=== PATIENT | male | born 1950 | race Caucasian/White ===

== ENCOUNTER 2017-08-22 15:11 | Inpatient (IN) | payer BC, MEDICARE ==
[2017-08-22] MEDS ORDERED: NS 0.9% 1000 ML* 1,000 ML IV ONE (15:13)
--- NOTE | 2017-08-22 15:39 | RAD ---
INDICATION: Neurologic changes code pearson. COMPARISON: There are no prior studies available for comparison. TECHNIQUE: Contiguous axial sections of the brain were obtained from the skull base to the vertex without contrast. FINDINGS: The ventricles, cisterns and sulci are enlarged consistent with age-related atrophy. No significant focal abnormality or mass effect is seen. There is no evidence for hemorrhage. The tip of the basilar artery appears hyperdense possibly representing thrombus. There is mild mucosal thickening within the maxillary sinuses. The visualized portion of the paranasal sinuses otherwise appear clear. There is also an effusion within the left mastoid air cells. The results of this exam were called to the referring clinician at 1525 hours. IMPRESSION: 1. THE TIP OF THE BASILAR ARTERY IS HYPERDENSE POSSIBLY REPRESENTING THROMBUS. RECOMMEND AN MRI AND MRA OF THE BRAIN FOR FURTHER EVALUATION. 2. EFFUSION WITHIN THE LEFT MASTOID AIR CELLS.
--- NOTE | 2017-08-22 15:40 | RAD ---
HISTORY: Neurological changes, code pisano COMPARISONS: None VIEWS: 4: Frontal dual-energy and lateral views of the chest. FINDINGS: CARDIOMEDIASTINAL SILHOUETTE: The cardiomediastinal silhouette is normal. TONIA: The tonia are normal. PLEURA: The costophrenic angles are sharp. No pleural abnormalities are noted. LUNG PARENCHYMA: The lungs are clear. ABDOMEN: The upper abdomen is clear. There is no subphrenic gas. BONES AND SOFT TISSUES: No bone or soft tissue abnormalities are noted. OTHER: None. IMPRESSION: NO ACTIVE CARDIOPULMONARY DISEASE.
[2017-08-22 15:59] LABS: ABS Basophils 0.1 10^3/ul (0-0.2); ABS Eosinophils 0.1 10^3/ul (0-0.6); ABS Lymphocytes 1.3 10^3/ul (1.0-4.8); ABS Monocytes 0.4 10^3/ul (0-0.8); ABS Neutrophils 4.9 10^3/ul (1.5-7.7); ABS Nucleated RBC 0 10^3/ul; Eosinophil % 1.8 % (0-6); Hematocrit 39 % (42-52); Hemoglobin 13.2 g/dl (14.0-18.0); Lymphocyte % 19.7 % (25-47); Mean Corpuscular HGB Conc 34 g/dl (31-36); Mean Corpuscular Hemoglobin 30 pg (27-31); Mean Corpuscular Volume 89 fL (80-94); Mean Platelet Volume 9 um3 (7.4-10.4); Nucleated Red Blood Cells % 0; Platelet Count 199 10^3/ul (150-450); Red Blood Count 4.38 10^6/ul (4.0-5.4); Red Cell Distribution Width 13 % (10.5-15); White Blood Count 6.8 10^3/ul (3.5-10.8)
[2017-08-22] MEDS ORDERED: Iodixanol* (CONTRAST) 320 MG/ML 100 ML SDV IV ONE (15:59)
[2017-08-22 16:07] LABS: INR 0.89 (0.77-1.02)
[2017-08-22 16:28] LABS: EGFR Non-African American 53.2 (>60)
--- NOTE | 2017-08-22 16:37 | RAD ---
Indication: Seizure versus stroke. Contrast: Administered 80.2 ml of VISAPAQUE 320 mg/ml CTA of the neck and head was performed after IV contrast administration. Coronal and sagittal reconstructed images were obtained. Origins of the great vessels are unremarkable. The common carotid arteries demonstrates no intimal wall thickening or plaque. No definite plaque is noted at the carotid artery origins bilaterally. The carotid arteries in the neck demonstrates no significant stenosis. No evidence of carotid artery dissection is noted. The vertebral arteries demonstrates codominant vertebral arteries. No evidence of vertebral artery dissection is noted. The appear of normal caliber. CTA of the brain demonstrates the intracranial carotid arteries including the intracavernous portion to be intact. Anterior and middle cerebral arteries are intact with no aneurysmal dilatation or branch occlusion. Anterior and middle cerebral arteries demonstrates no atherosclerosis. Sagittal and transverse sinuses are unremarkable. No evidence of aneurysmal dilatation is noted. No branch occlusion is identified. Vertebral arteries, basilar artery and posterior cerebral arteries are grossly unremarkable with no branch occlusion or aneurysmal dilatation. Patent posterior communicating arteries are noted bilaterally. Evaluation of the soft tissues of the neck demonstrates thyroid lobes to be unremarkable. No significant adenopathy is noted. Parotid glands are grossly intact. Submandibular glands are unremarkable. Multilevel degenerative disc disease of the spine is noted. IMPRESSION: CTA of the neck and head demonstrates no evidence of stenosis or branch occlusion. No abnormal calcifications is noted. No aneurysmal dilatation is identified.
[2017-08-22] MEDS ORDERED: Aspirin Low Dose CHEW TAB* 81 MG PO ONE (16:47)
[2017-08-22] MEDS ORDERED: LORazepam INJ* 2 MG/ML 1 ML VIAL IV PUSH PRN (17:25)
[2017-08-22] MEDS ORDERED: levETIRAcetam IV* 1,000 MG in NS 0.9% 100 ML* 100 ML IVPB ONE (18:00)
--- NOTE | 2017-08-22 18:06 | RAD ---
Indication: Seizures. Image sequences: Sagittal and axial T1, axial T2, FLAIR, diffusion and susceptibility weighted images of the brain were obtained. Coronal T2 and T1-weighted images were obtained. Ventricular structures are midline. No midline shift is noted. The extra-axial spaces are unremarkable. There is no evidence of intracranial mass or hemorrhage. No other high or low signal lesions are identified. No restriction of diffusion is noted. No evidence of vasogenic edema is noted. No definite hippocampal abnormality is identified. There is mild atrophy noted. Minimal mucosal thickening of the maxillary sinuses is noted bilaterally. IMPRESSION: No intracranial lesion is identified. Age-appropriate atrophy.
[2017-08-22] MEDS: levETIRAcetam 500 MG IVPREMIX* 500 MG/100 ML BAG IV SCH (20:24)
[2017-08-22 22:33] LABS: Urine Appearance Clear; Urine Blood Negative (Negative); Urine Color Yellow; Urine Ketones 1+ (Negative); Urine Protein Negative (Negative); Urine Specific Gravity 1.035 (1.010-1.030); Urine Urobilinogen Negative (Negative)
--- NOTE | 2017-08-22 22:36 | CONS ---
CC: Dr. Burak Oleary * CONSULTATION NOTE: DATE OF CONSULT: 08/22/17 CURRENT LOCATION: ER bed 12. PRIMARY CARE PROVIDER: Dr. Burak Oleary. REASON FOR CONSULT: Vinh pearson with loss of consciousness. HISTORY OF PRESENT ILLNESS: Mr. Crowe is a very nice 67-year-old gentleman who has no significant past medical history per his report. He was in his usual state of health. 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 He was with a client this afternoon and received a phone call, took the phone call, and shortly thereafter came back to this client at which point he suddenly had loss of consciousness. There were some generalized tonic clonic movements described. No bladder or bowel incontinence. No tongue biting that he is aware of. By the time EMS arrived, they stated he was clearly postictal and confused. He was answering some questions slowly regaining the ability to do so in the ambulance ride, he started to answer more questions and move his extremities. When he got to the ER, he had another episode where he stared off and became unresponsive. I spoke with the ER doctor , Dr. Duff, who states that he was staring off in the space, was not speaking, answering questions, and was not moving any of his extremities. This lasted for a minute or so. A vinh pearson was called. He was sent to CT scan. By the time he was in the CT scanner, he started to improve and when he returned to his ER room, he was basically back to normal, slightly confused, but quickly returning to normal. He has no history of seizures, no history of meningitis or brain infection, no history of significant head trauma or loss of consciousness. No family history of seizures. He has no history of febrile seizures. He has had no recent falls or head trauma. He denies any headache, any vision changes or double vision. Any speech difficulties that he is aware of. Any swallowing difficulties, any hearing changes. He denies any focal numbness, tingling, or weakness in his arms or legs. He denies any tremors. He has not recently been ill. No fevers, chills, nausea, vomiting, diarrhea, or constipation. He has otherwise been in his usual state of health. He currently does not complain of any vertigo, has no evidence of nystagmus. When I arrived in the ER, I did an NIH stroke scale, it was 0. The patient was completely alert and oriented, responsive. He had no recollection of the preceding events. The first thing he remembers is waking up in the ER room. Currently is asymptomatic except for some mild cramping pain in his right calf. He states that he does feel dizzy at times when he sits up, but he denies any palpitations or chest pain or shortness of air. He does note that over the last few days, he has had some difficulties at home with his girlfriend. He has been staying with a friend over the last several days and he notes that he has not been sleeping well. He also states he has not been eating very well and feels that he may be dehydrated. In the past, he states that he had a "nervous breakdown" years ago and at that time, was prescribed trazodone and Seroquel to help him sleep. He has not been on those medications for years. Two days ago, he was put back on the medications after he went to his PCP and requested something for sleep. Because those had worked in the past, he was restarted on those medications and is currently on trazodone 100 mg at bedtime and Seroquel 25 mg at bedtime. He has been taking these for the last 2 nights. He denies any tobacco or alcohol use. He tries to live a healthy lifestyle. He smoked marijuana in the distant past, but none recently. He denies any drug use. PAST MEDICAL HISTORY: As noted above. PAST SURGICAL HISTORY: Includes a hernia surgery in the distant past. MEDICATIONS: 1. Trazodone 100 mg at bedtime. 2. Seroquel 25 mg at bedtime. ALLERGIES: He has no allergies recorded. FAMILY HISTORY: Significant for a paternal grandfather with a stroke in his 60s. A maternal grandmother with diabetes. He denies any family history of seizures or other neurologic issues. 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 He does not smoke or drink. He does not use any illicit substances. No alcohol use. He currently has been staying with a friend, but has a girlfriend that he lives with normally. He states that he has had a conversation today and they were planning to reconcile. REVIEW OF SYSTEMS: A 14-organ systems is noted above, otherwise negative. PHYSICAL EXAM: Vital Signs: He is afebrile. His vital signs are stable, blood pressure is 99/63, afebrile, pulse in the 50s, respiratory rate 20s. In general, he is a well-nourished, well-developed, although very thin gentleman, lying in his hospital bed. He is pleasant, well-dressed, and well-groomed. HEENT: He is normocephalic, atraumatic. Sclerae anicteric. Mucous membranes are moist. Oropharynx is clear. Nares are patent. Neck: Supple. No thyromegaly, no carotid bruits, no meningismus. Chest: Clear to auscultation bilaterally. Cardiovascular: Regular rate and rhythm without murmurs, gallops, or rubs. Abdomen is nontender and nondistended. Extremities: There is no clubbing, cyanosis, or edema. He has no palpable cords in his legs. No redness or erythema. His skin is warm and dry with scattered moles, but no lesions or bruising. Neurologic Exam: He is awake, alert, and oriented x3. His speech is smooth. There is no dysarthria. Recall of recent events is somewhat impaired for the last several hours. Recall of motor events is intact. Vocabulary is intact. His mood is dysthymic. Affect, mood congruent. Speech is fluent. There is no dysarthria. Repetition is intact. Cranial nerves: Pupils are equal, round, and reactive to light. Extraocular muscles are intact in all visual celeste. There is no vertical gaze nystagmus or rotary nystagmus. There is no dysconjugate gaze. There is no vertical or horizontal gaze or paralysis. No HARSH noted. Face is symmetric. Facial sensation is intact. Hearing is intact bilaterally. Tongue is midline. Palate raises symmetrically. He has no nystagmus or dizziness with head moving. No dizziness reproducible with head flexion and extension. Sternocleidomastoid and trapezius are both 5/5. His motor exam is 5/5 throughout. There is no drift. Tone and bulk are both normal. Sensation is intact to light touch and pinprick throughout. There is no focal deficits. He does not extinguish or neglect. Idpptp-rp-bqzp and rapid alternating movements are intact as his [id number]-bh-dxkz without dysdiadochokinesia or dysmetria. There is no tremor resting or with motion. No postural tremor noted. DTRs are 2+ and symmetric in the upper and lower extremities. Equivocal Babinski's. Gait was not tested at this time as he feels somewhat dizzy when he stands up. DIAGNOSTIC STUDIES/LAB DATA: Includes a glucose of 118. His other lab work is pending at this time. CT scan: I did review the films. There appears to be hyperdense area in the top of the basilar artery suggesting a possibility of a thrombus. He has otherwise no acute intracranial brain abnormalities noted. No prior strokes noted. No hemorrhaging noted. He had a chest x-ray done as well, which showed no active cardiopulmonary disease. Electrocardiogram: Sinus rhythm. ASSESSMENT AND PLAN: Mr. Crowe is a 67-year-old gentleman who has no significant past medical history except for some psychiatric issues years ago at which time he was given trazodone and Seroquel for sleep, has not been on those medications for years. He has been in his usual state of health, but has had some underlying stressors. He has had some problems with his girlfriend. He has been living with someone for the last several days. Recently, saw a SALESFORCE SPECIALIST at his PCP's office and requested something for sleep, was put back on trazodone 100 mg at night as well as Seroquel 25 mg at night to help him sleep. He has been taking that for the last 2 nights. He also states he has not been eating well and not been drinking fluids. He denies any illicit substance use. He has no prior history of seizure today. He had what appears to be a generalized tonic-colonic seizure with a postictal period. No tongue biting. No bladder or bowel incontinence. He slowly recovered, but has another event in the ER where he became unresponsive although his eyes were open. He was not moving his extremities or following commands. This slowly resolved over the next few minutes. By the time he had returned from the CT scanner, he was back to his baseline. It appears he may have had another seizure. He currently denies any other symptoms other than some right calf pain. No palpable cords present. He denies any headache, nausea, vomiting, dizziness or vertigo. The only time that he feels dizzy is when he sits up or stands up and that has been ongoing for several days. CT scan showed no acute changes, but there is a suggestion of a hyperdensity at the top of the basilar artery suggesting a thrombus. Certainly top of the basilar artery syndrome can be associated with a number of neurologic findings, most concerning would be his change in mental status. The changes in his alertness, his behavior can be associated with that syndrome. I see no ocular motor or pupillary abnormalities. No unusual vertical or lateral gaze eye movements, no nystagmus. His extraocular muscles in all quadrants are intact. There is no evidence of any ocular torsion or skew deviation. No problems with convergence. I see no evidence of Weir sign. He has no sensory motor abnormalities. No evidence of any other brain stem involvement. Plan: --The plan is to get a CT angiogram of his head and will make further recommendations afterwards. Should he have evidence of a posterior circulation thrombus, I will likely recommend transfer to an outside facility for further evaluation and management. --If there is no evidence of any thrombus, we will proceed with additional workup including MRI of the brain. --EEG. Concern for stroke at this point remains low pending further evaluation by CT angiogram and MRI. He will likely need to be admitted and monitored overnight. I will continue to monitor him closely down in the ER and make further recommendations as necessary. Thank you for the opportunity to participate in the care of this very interesting patient. Addendum: The patient had no evidence of thrombus on CTA. Initial MRI was negative but he continued to have multiple events, some witness by me. The events consisted of staring, loss of speech, post-ictal confusion. Subsequent continuous EEG showed multiple seizure events. He was loaded on Keppra and is being sent to the ICU for further monitoring overnight. Etiology of his ongoing seizures is unclear at this point. No recent illnesses, no risk factors, no fevers, meningismus, light or sound sensitivity. No prior seizures. [id number]/[facility] #: [id number] [facility]
--- NOTE | 2017-08-22 23:25 | HP ---
CC: Burak Oleary MD; Iron Cerda MD * HISTORY AND PHYSICAL: DATE OF ADMISSION: 08/22/17 PRIMARY CARE PROVIDER: Burak Oleary MD ATTENDING PHYSICIAN: Stephen Eddy MD * (dictated by Beena Trujillo NP). CHIEF COMPLAINT: Possible seizure. HISTORY OF PRESENT ILLNESS: Mr. Crowe is a 67-year-old male with no significant past medical history who states that many years ago he had a psychotic break and was hospitalized for 3 weeks and has been doing well, but recently has been under a lot of stress and not handling it well. He describes it as being hypomanic at this time. He states he has not slept in 3 to 4 days. He denies any recent fever, chills, shortness of breath, nausea, vomiting, chest pain, diarrhea. The patient reportedly had an episode of staring and unresponsiveness for approximately 5 minutes earlier this morning. He then again around lunch time had a similar episode where he mostly closed his eyes and stood and was nonresponsive for approximately 5 minutes. His partner thought the behavior was strange. They tried to help him sit and he was very rigid. 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 While in his office with a client, the patient had placed needles in that client and then recalled nothing further than waking up here in the emergency room. According to the client who witnessed the episode, the patient reportedly had a tonic clonic seizure. There was no urinary or bowel incontinence. No signs of tongue biting, although it appears that the patient may have bit his left lower lip as he has some swelling there. According to the patient's partner, he also has difficulty with his prostate and has difficulty urinating when he is under a lot of stress. After the episode at his office, EMS was called and the patient was brought to the ER. While in the emergency room, initially a Vinh Pittman was called. The patient had a CT of his head that was negative. He had an EKG without significant findings. He had labs without significant findings other than a lactic acid of 4.8. He was seen in consultation by Dr. Iron Cerda, who felt this was likely a seizure and Dr. Cerda recommended admission and head and neck CTA in addition to a MRI of his brain. When the patient was over at MRI while in the changing room, he locked himself in the changing room where he again had another staring episode and unresponsive episode. Hospitalists were asked to evaluate the patient for admission. PAST MEDICAL HISTORY: 1. Insomnia. 2. Enlarged prostate. 3. Possible psychosis or dudley in the past. PAST SURGICAL HISTORY: Status post left inguinal hernia repair x2. MEDICATIONS: Home medications include: 1. Trazodone 100 mg oral daily at bedtime. 2. Seroquel 25 mg oral daily at bedtime. 3. The patient also takes numerous supplements including Thai herbs and prostate health supplements. The patient's partner believes he takes melatonin. She will work on getting us a list of the supplements he is taking. ALLERGIES: ENVIRONMENTAL. FAMILY HISTORY: The patient's paternal grandfather had a history of a [place]. He had a maternal grandmother with a history of diabetes mellitus. Father had a history of metastatic colon cancer and his mother had a history of metastatic uterine or ovarian cancer. SOCIAL HISTORY: The patient denies tobacco, alcohol or recreational drug use. 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 His partner, Isabel Slater or his friend Karyn will be his surrogate decision makers in the event he is unable to make decisions for himself. REVIEW OF SYSTEMS: I performed an 11-point review of systems. All the pertinent positives and negatives are mentioned in the history of present illness and remaining review of systems are negative. PHYSICAL EXAMINATION GENERAL APPEARANCE: The patient is alert, pleasant, and appears to be in no acute distress. VITAL SIGNS: Temperature 98.3, heart rate 52, respiratory rate 20, O2 sat 98% on room air, blood pressure 122/71. HEENT: Normocephalic, atraumatic. Pupils are equal and reactive to light. Extraocular movements are intact. The patient has some mild swelling in the left side of his lower lip. RESPIRATORY: There is no accessory muscle use. The lungs are clear to auscultation bilateral. CARDIOVASCULAR: Regular rate and rhythm. S1, S2 present. There are no murmurs , rubs, or gallops heard. ABDOMEN: Soft, nontender, nondistended. Bowel sounds present x4. EXTREMITIES: There is no lower extremity edema. DP and PT pulses are 2+ and symmetric. MUSCULOSKELETAL: There is no clubbing or cyanosis noted. The patient exhibits good strength in all extremities. NEUROLOGIC: The patient is alert and oriented x4. Cranial nerves II through XII are grossly intact. The patient's hand naphthalene operator are equal. He is able to dorsiflex and plantarflex bilateral and it is equal. Tongue is midline. Smile is symmetric. PSYCHOLOGICAL: The patient is anxious but cooperative. SKIN: The patient has mild erythema at the areas of his EKG leads. There are no other rashes or abnormalities seen. DIAGNOSTIC STUDIES/LAB DATA: Sodium 134, potassium 4.4, chloride 103, CO2 of 21, BUN 17, creatinine 1.34, glucose 107, lactic acid 4.8. White blood cell count 6.8, hemoglobin 13.2, hematocrit 39 and platelet count 199,000. Troponin 0.00. EKG shows sinus rhythm and a rate of 66. There are no acute signs of ischemia. There are no previous EKGs for comparison. 1. Brain CT from today. Radiologist impression: The tip of the basilar artery is hyperdense, possibly representing thrombus. I recommend a MRI and MRA of the brain for further evaluation. Effusion within the left mastoid air cells. 2. Chest x-ray from today. Radiologist impression: No active cardiopulmonary disease. 3. Head and neck CTA from today. Radiologist impression: CTA of the neck and head demonstrate no evidence of stenosis or branch occlusion. No abnormal calcification is noted. No aneurysmal dilation is identified. 4. MRI read pending at the time of this dictation. IMPRESSION: Mr. Crowe is a 67-year-old male with past medical history significant for insomnia, enlarged prostate and an undetermined history of psychosis who presented to the emergency room today after having what appeared to be a tonic-clonic seizure. He will be admitted as an observation for seizures. ASSESSMENT/PLAN: 1. New onset of seizures. The patient does not have a seizure history. Two days ago, he was started on trazodone and Seroquel, which can lower the seizure threshold. This is likely the cause of his seizures. The patient will be monitored in the ICU, so that he can be on long-term EEG monitoring overnight in addition to telemetry. The patient has already been seen in consultation by Dr. Cerda with Neurology who will load him with 1000 mg of Keppra now and start 500 mg of IV Keppra twice daily starting this evening. The patient will be on seizure precautions. He does not have any sign of infection. We will hold on lumbar puncture as meningitis is low in the differential. At this point, the patient also has a lactic acidosis, I suspect secondary to his seizure. He will get IV fluids. We will recheck lactic acid in a while. He will have lorazepam available as needed for seizure activity. 2. Possible acute kidney injury. The patient's creatinine is elevated. I have no previous labs for comparison. We will give him IV hydration overnight and see if this improves his creatinine. 3. Possible psychosis. The patient may benefit from a psychiatric evaluation. We should be cautious in starting any medications for his dudley at this time as we do not want to lower his seizure threshold anymore. 4. Insomnia. For now, we are going to hold on giving the patient anything tonight. 5. Enlarged prostate. We will monitor the patient to make sure that he is able to urinate. 6. Fluids, electrolytes and nutrition. The patient will be on a regular diet. 7. Code status. Full code. 8. DVT prophylaxis. The patient is at moderate risk, subcu heparin. DISPOSITION: Observation. TIME SPENT: Time for this admission was approximately 60 minutes, greater than half of that was spent with the patient discussing medications, past medical history, and the events leading up to his arrival today and performing physical examination. The case was reviewed with the attending, Dr. Eddy, who agrees with the plan of care. Reviewed by ERIN ZHAO 08/27/17 1813 [id number]/[facility] #: [id number] SAMUEL
[2017-08-23] MEDS ORDERED: Phenytoin IV(*) 50 MG/ML 5 ML VIAL (250 MG) IVPB ONE ×2 (00:19)
[2017-08-23] MEDS: Heparin VIAL(*) 5000 UNITS/ML VIAL (FIVE THOUSAND) SUBCUT SCH (00:30)
[2017-08-23] MEDS: LORazepam INJ* 2 MG/ML 1 ML VIAL IV PUSH ONE ×2 (00:40→00:45)
[2017-08-23] MEDS: PHENYTOIN IV ONE ×4 (00:53→01:15)
[2017-08-23] MEDS: [UNRECOGNIZED DRUG - OTHER] IV ONE ×4 (00:53→01:15)
[2017-08-23] MEDS ORDERED: NS 0.9% 1000 ML* 1,000 ML IV ONE (04:08)
--- NOTE | 2017-08-23 05:10 | PN ---
Progress Note - Progress Note Date of Service: 08/23/17 Note: Patient became rather somnolent after Ativan and dilantin - only arousable to noxious stimuli. Around 4:30 he became stuporous with urinary urgency, tried to get up out of bed and fell out of bed. Still smonolent and difficulty to awake. Will get head CT and ABG. Will contact Dr. Cerda with results if abnormal
[2017-08-23 05:21] LABS: Hematocrit 39 % (42-52); Hemoglobin 13.1 g/dl (14.0-18.0); Mean Corpuscular HGB Conc 34 g/dl (31-36); Mean Corpuscular Hemoglobin 30 pg (27-31); Mean Corpuscular Volume 90 fL (80-94); Mean Platelet Volume 9 um3 (7.4-10.4); Platelet Count 176 10^3/ul (150-450); Red Blood Count 4.36 10^6/ul (4.0-5.4); Red Cell Distribution Width 14 % (10.5-15); White Blood Count 7.8 10^3/ul (3.5-10.8)
[2017-08-23 05:26] LABS: INR 0.9 (0.77-1.02)
[2017-08-23 05:43] LABS: EGFR Non-African American 68.9 (>60)
--- NOTE | 2017-08-23 08:17 | PN ---
Subjective Date of Service: 08/23/17 Interval History: Patient was on continuous monitoring overnight. Had several prolonged seizures until radiographer angiogram. These were associated with staring and altered mental status. He was not communicative at the time. Would not answer questions. He was confused afterwards but no tonic/clonic activity, no tongue biting or bowel/ bladder incontinence. He was initially loaded on Keppra 1000 mg around 7 pm and then received another 500mg dose IV at 9-10 pm. He continued to seizure despite this. Subsequently loaded on Phosphenytoin 1250mg (20mg/kg) and given 2 mg Ativan. Became very somnolent, hard to arouse, confused, blood pressure dropped and he has received a total of 2 L IVF. He did attempt to get out of bed overnight, fell down but no reported head trauma. CT scan films reviewed. No evidence of acute changes. This morning. He is arousable, somnolent but answers questions appropriately, oriented X 3. ICU nurse is concerned about poor IV access at this point. Girlfriend reports that the patient spent some time in [place] in the last month. His girlfriend reported to us last night that the patient has been taking a number of [place] herbal supplements. They are listed in the chart but include: 1. Zyzyphus 8 2. Albizzia 9 3. Epimedium 8 Each of these preparations contain at 7-12 ingredients MRI 08.22.17: films reviewed. No acute intracranial issues, no stroke, no mass effect or midline shift CTA 08.22.17: films reviewed. No vascular abnormalities identified Objective Active Medications: Levetiracetam (Keppra Iv Premix*) 500 mg in 100 mls @ 400 mls/hr IV Q12H [facility] Last Admin: 08/22/17 20:24 Dose: 400 mls/hr Sodium Chloride (Ns 0.9% 1000 Ml*) 1,000 mls @ 100 mls/hr IV PER RATE [facility] Lorazepam (Ativan Inj*) 2 mg IV PUSH Q10M PRN PRN Reason: seizure activity over 5 minute Vital Signs 08/22/17 08/22/17 08/22/17 17:54 17:57 18:00 Temperature 98.3 F Pulse Rate 56 54 59 Respiratory 18 20 Rate Blood Pressure 131/64 122/71 (mmHg) O2 Sat by Pulse 100 97 Oximetry 08/22/17 08/22/17 08/22/17 18:02 18:15 18:16 Temperature 98.3 F Pulse Rate 52 54 52 Respiratory 27 20 18 Rate Blood Pressure 122/71 135/74 (mmHg) O2 Sat by Pulse 98 100 100 Oximetry 08/22/17 08/22/17 08/22/17 18:17 18:30 18:45 Temperature Pulse Rate 52 51 49 Respiratory 20 19 16 Rate Blood Pressure 134/77 126/73 (mmHg) O2 Sat by Pulse 100 100 100 Oximetry 08/22/17 08/22/17 08/22/17 19:00 19:01 19:15 Temperature Pulse Rate 47 51 54 Respiratory 16 26 14 Rate Blood Pressure 116/75 116/69 (mmHg) O2 Sat by Pulse 90 100 100 Oximetry 08/22/17 08/22/17 08/22/17 19:30 19:45 20:00 Temperature 99.5 F Pulse Rate 53 52 54 Respiratory 14 25 24 Rate Blood Pressure 108/65 100/67 126/70 (mmHg) O2 Sat by Pulse 99 99 100 Oximetry 08/22/17 08/22/17 08/22/17 20:01 20:15 20:30 Temperature Pulse Rate 53 49 52 Respiratory 25 22 16 Rate Blood Pressure 111/62 112/69 (mmHg) O2 Sat by Pulse 100 100 98 Oximetry 08/22/17 08/22/17 08/22/17 20:45 21:00 21:14 Temperature Pulse Rate 50 51 50 Respiratory 19 21 21 Rate Blood Pressure 114/73 112/65 (mmHg) O2 Sat by Pulse 100 100 99 Oximetry 08/22/17 08/22/17 08/22/17 21:15 21:17 21:31 Temperature Pulse Rate 50 51 53 Respiratory 18 15 30 Rate Blood Pressure 113/67 123/69 (mmHg) O2 Sat by Pulse 100 100 100 Oximetry 08/22/17 08/22/17 08/22/17 21:45 22:00 22:01 Temperature Pulse Rate 54 66 59 Respiratory 18 12 23 Rate Blood Pressure 108/67 124/85 (mmHg) O2 Sat by Pulse 99 98 100 Oximetry 08/22/17 08/22/17 08/22/17 22:15 22:30 22:37 Temperature Pulse Rate 50 51 51 Respiratory Rate Blood Pressure 110/65 106/60 (mmHg) O2 Sat by Pulse 99 99 98 Oximetry 08/22/17 08/22/17 08/22/17 22:38 22:45 23:00 Temperature Pulse Rate 52 52 52 Respiratory 14 Rate Blood Pressure 94/55 96/55 (mmHg) O2 Sat by Pulse 98 97 97 Oximetry 08/22/17 08/22/17 08/22/17 23:01 23:15 23:30 Temperature Pulse Rate 51 52 49 Respiratory Rate Blood Pressure 93/55 107/61 (mmHg) O2 Sat by Pulse 97 97 97 Oximetry 08/22/17 08/22/17 08/23/17 23:31 23:45 00:00 Temperature 97.2 F Pulse Rate 47 74 Respiratory 18 Rate Blood Pressure 98/61 (mmHg) O2 Sat by Pulse 98 98 Oximetry 08/23/17 08/23/17 08/23/17 00:01 00:15 00:31 Temperature Pulse Rate 74 51 61 Respiratory 23 19 Rate Blood Pressure 123/81 125/73 122/65 (mmHg) O2 Sat by Pulse 98 99 100 Oximetry 08/23/17 08/23/17 08/23/17 00:40 00:45 00:46 Temperature Pulse Rate 49 Respiratory 16 16 16 Rate Blood Pressure 98/60 (mmHg) O2 Sat by Pulse 95 Oximetry 08/23/17 08/23/17 08/23/17 01:00 01:01 01:16 Temperature Pulse Rate 53 54 57 Respiratory 27 29 17 Rate Blood Pressure 100/63 113/70 (mmHg) O2 Sat by Pulse 95 95 99 Oximetry 08/23/17 08/23/17 08/23/17 01:25 01:30 01:35 Temperature Pulse Rate 51 57 57 Respiratory 16 15 15 Rate Blood Pressure 101/58 89/57 87/54 (mmHg) O2 Sat by Pulse 95 97 95 Oximetry 08/23/17 08/23/17 08/23/17 01:40 01:45 01:46 Temperature Pulse Rate 59 58 58 Respiratory 15 15 15 Rate Blood Pressure 82/51 77/49 77/51 (mmHg) O2 Sat by Pulse 95 95 95 Oximetry 08/23/17 08/23/17 08/23/17 02:00 02:01 02:15 Temperature Pulse Rate 52 48 52 Respiratory 15 13 14 Rate Blood Pressure 83/50 77/48 (mmHg) O2 Sat by Pulse 95 97 97 Oximetry 08/23/17 08/23/17 08/23/17 02:19 02:25 02:30 Temperature Pulse Rate 51 52 54 Respiratory 14 14 14 Rate Blood Pressure 79/50 77/48 80/53 (mmHg) O2 Sat by Pulse 97 97 100 Oximetry 08/23/17 08/23/17 08/23/17 02:40 02:50 03:00 Temperature Pulse Rate 52 52 52 Respiratory 13 12 14 Rate Blood Pressure 80/51 87/54 77/46 (mmHg) O2 Sat by Pulse 100 100 99 Oximetry 08/23/17 08/23/17 08/23/17 03:01 03:10 03:20 Temperature Pulse Rate 51 50 51 Respiratory 15 14 14 Rate Blood Pressure 80/50 81/48 (mmHg) O2 Sat by Pulse 100 100 96 Oximetry 08/23/17 08/23/17 08/23/17 03:30 03:40 03:50 Temperature Pulse Rate 48 50 46 Respiratory 14 15 14 Rate Blood Pressure 83/49 86/45 86/52 (mmHg) O2 Sat by Pulse 97 98 100 Oximetry 08/23/17 08/23/17 08/23/17 04:00 04:01 04:05 Temperature 96.7 F Pulse Rate 48 46 47 Respiratory 12 12 13 Rate Blood Pressure 82/54 77/48 (mmHg) O2 Sat by Pulse 100 100 Oximetry 08/23/17 08/23/17 08/23/17 04:10 04:31 04:40 Temperature Pulse Rate 48 Respiratory 14 16 14 Rate Blood Pressure 90/56 93/62 95/57 (mmHg) O2 Sat by Pulse 100 Oximetry Oxygen Devices in Use Now: None Neurology Exam: General: Awake, Alert, Oriented x3 HEENT: Normocephelic/atraumatic, sclera anicteric, mucous membranes moist Neck: Supple Chest: Clear to auscultation bilaterally Cardiovascular: Bradycardic, no murmurs, gallops o Abdomen: Soft, nontender/nondistended, scaphoid Extremities: No clubbing, cyanosis, or edema. Small, circular patches in the ear (told they are accupuncture pressure points) Neurological Findings: Somnolent, arousable, Oriented x3 Speech: Somonlent with some slurring but fluent, answers questions appropriately Cranial Nerve: PEERL, EOM intact, VFF, no nystagmus, face symmetric bilaterally , hearing intact bilaterally, palate elevates symmetrically, tongue midline Motor: Good resistance X 4 with normal tone. He has some drift in all extremities but is falling asleep during exam Sensation: intact to LT/Noxious stimuli bilaterally upper and lower extremities Deep Tendon Reflex: 2+ symmetric in the upper/lower extremities, Babinski - equivocal Finger to nose, rapid alternating movements intact without tremor, no dysdiadochokinesia Result Diagrams: 08/23/17 05:10 08/23/17 05:10 Microbiology and Other Data: Microbiology 08/22/17 20:00 Nasal Screen MRSA (PCR)(ED) - Final Nasal Mrsa Not Detected Assessment/Plan 67 year old with a history of psychiatric issues dating back years, previous "nervous breakdown" years ago, put on Trazodone and Seroquel at that time with improvement and has been off of those medications for years. He has had some pyschosocial issues recently, been staying at a friends house, has had very limited sleep, poor appetite, has felt "down." Saw [facility] 3 days ago and was restarted on Trazodone 100mg q pm and Seroquel 25mg po q pm for insomnia which helped. No seizure risk factors. His girlfriend reports he is on a number of [place] herbal supplements (list in the chart). Presented yesterday with 3-4 seizures prior to arrival. The first 2 consisted of staring, maintaining tone ( standing) during one episode, non-verbal at the time with a few minutes of post- ictal confusion. He has one GTC like seizure and has continued to have multiple , staring spells with alteration of consciousness, confusion. No bladder or bowel incontinence, no tongue biting. Was initially loaded on Keppra last night with continued seizure activity. Subsequently given Ativan and loaded on Phenytoin 20mg/kg with improvement in seizure activity but became very somnolent , hypotensive, hard to arouse, fell out of bed at one point, no head trauma and repeat Head CT ok. Received 2 L of IVF. Slowly improving this am. Continuous EEG: Shows localized seizure activity with secondarily generalizes associated with the spells. Plan: 1. Continue Keppra and Dilantin today (will get Dilantin level this am and then start maintenance dose) 2. Will plan for continuous EEG monitoring for now 3. Plan for LP: --No evidence for infection: afebrile, no meningismus, no headaches, no light or sound sensitivity, no recent infections. Look for evidence of inflammation/infection. Recent travel to [place]. Check for AFB and tick borne --Recently restarted on several medications which can lower seizure threshold (Seroquel and Trazodone) --Recently has had little to no sleep for several days, has been under stress --Denies alcohol or illicit substance use --Has been taking a number of herbal preparations. I plan to research the supplements today to look for possible culprits which might lower threshold --No evidence of intracranial/structural cause. Had CTA yesterday with contrast. Plan for MRI with contrast later today --Consider autoimmune/paraneoplastic encephalitis: Consider additional workup for occult malignancy --Monitor in ICU --PICC line for poor IV access
--- NOTE | 2017-08-23 08:34 | RAD ---
Indication: Fall, head injury. CT of the brain was performed without IV contrast. Ventricular structures are midline. No midline shift is noted. The extra-axial spaces are unremarkable. There is no evidence of intracranial mass or hemorrhage. No other high or low density lesions. There is opacification of left mastoid air cells. No fracture is noted. Mucosal thickening of the maxillary sinuses is noted. When compared to previous exam of August 22, 2017 no significant change is noted. IMPRESSION: No intracranial mass or hemorrhage.
[2017-08-23] MEDS: levETIRAcetam 500 MG IVPREMIX* 500 MG/100 ML BAG IV SCH ×2 (09:07→20:05)
[2017-08-23] MEDS: NS 0.9% 1000 ML* 1,000 ML IV SCH ×2 (09:13→16:33)
--- NOTE | 2017-08-23 11:16 | PN ---
Subjective Date of Service: 08/23/17 Interval History: Patient seen and examined at bedside. Denies fever, chills, shortness of breath , chest discomfort, N/V/D. Pt had multiple seizures overnight while on video EEG. Pt continues to be lethargic but wakes and answers questions. According to his significant other Isabel he travelled to [place] last month for about a week and developed difficulty sleeping after that. Pt is an avid swimmer per his partner. Tele: Sinus rhythm, rate 40-50's Family History: Unchanged from Admission Social History: Unchanged from Admission Past Medical History: Unchanged from Admission Objective Active Medications: Levetiracetam (Keppra Iv Premix*) 500 mg in 100 mls @ 400 mls/hr IV Q12H [facility] Sodium Chloride (Ns 0.9% 1000 Ml*) 1,000 mls @ 100 mls/hr IV PER RATE [facility] Lorazepam (Ativan Inj*) 2 mg IV PUSH Q10M PRN Reason: seizure activity over 5 minute Vital Signs - 8 hr 08/23/17 08/23/17 09:01 09:16 Pulse Rate 40 Respiratory 21 13 Rate Blood Pressure 136/85 110/60 (mmHg) Oxygen Devices in Use Now: None Appearance: NAD, laying in bed Respiratory: Symmetrical Chest Expansion and Respiratory Effort, Clear to Auscultation Cardiovascular: NL Sounds; No Murmurs; No JVD, RRR Abdominal: NL Sounds; No Tenderness; No Distention Extremities: No Edema Skin: No Rash or Ulcers Neurological: Alert and Oriented x 3, NL Muscle Strength and Tone Lines/Tubes/Other Access: Clean, Dry and Intact Peripheral IV - site benign Nutrition: Taking PO's Result Diagrams: 08/23/17 05:10 08/23/17 05:10 Additional Lab and Data: Continuous EEG: Shows localized seizure activity with secondarily generalizes associated with the spells. Microbiology and Other Data: Microbiology 08/22/17 20:00 Nasal Screen MRSA (PCR)(ED) - Final Nasal Mrsa Not Detected Assess/Plan/Problems-Billing Mr. Carrera is a 67 yo male with PMH significant for "nervous breakdown" and prostate enlargement who presented to the emergency room after a seizure. - Patient Problems (1) Seizure Code(s): R56.9 - UNSPECIFIED CONVULSIONS SNOMED Code(s): 79702715 Comment: - Continuous EEG monitoring for now - Plan for LP (No evidence for infection - afebrile, no meningismus, no headaches, no light or sound sensitivity, no recent infections) - Recently restarted on several medications which can lower seizure threshold ( Seroquel and Trazodone), these have been stopped - Recently has had little to no sleep for several days, has been under stress - Continue Keppra and Dilantin today (will get Dilantin level this am and then start maintenance dose) - Will plan to repeat contrasted MRI in the AM (2) DVT prophylaxis Code(s): [id number] - SNOMED Code(s): 571431109 Comment: - SQ heparin on hold for LP - SCDs (3) Full code status Code(s): Z78.9 - OTHER SPECIFIED HEALTH STATUS SNOMED Code(s): 732937440 Status and Disposition: Inpatient. Discharge to home when medically stable.
--- NOTE | 2017-08-23 11:50 | EEG ---
[facility] VIDEO/EEG MONITORING - Monitoring Monitoring Start Date: 08/22/17 Current Monitoring Session: 08/22/17 at 18:25 to 08/23/17 at 05:25 EEG Clinical Indication: Keven Crowe is a 67 year-old, right-handed man who began having episodes of loss of awareness today. Pt states he hasn't slept in several days and has been under stress. 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 While in MRI, pt had another episode, details unclear as to what occurred. While hooking pt up for EEG, he was talking about consent form with tech when he began staring at the tech with R eye deviation, L eye twitching, tongue sticking in and out while yawning. Pt became unable to speak but could intially follow command to squeeze techs hand and lift R arm up. Pt then could not lower his R arm on command, lift L arm or wiggle toes in his feet. This lasted several minutes. He also had an episode of tonic-clonic movements reportedly in the ED. He is on several [place] herbal supplements. Long-term video EEG is requested due to concern for new onset, acute repetitive seizures, to characterize/localize events and monitor treatment course Introduction: INTRODUCTION: The EEG was monitored from 21 scalp electrodes. Nineteen electrodes consisted of the standard parasagittal, temporal and midline leads of the International 10 -20 system. In addition, special electrodes T1 and T2 were placed. EEG data were recorded on an [employer] system with simultaneous MPEG-4 digital video recording of patient behavior. EEG recording was in a monopolar montage with all electrodes referenced to FCz. Significant behavioral events were signaled by an event button, or putative electrical seizure events were detected by a computer program. All EEG data were reviewed in their entirety on a monitor with reconstruction of montages and adjustments of sensitivity and filtering. Simultaneous patient behavior was viewed on an adjacent monitor and correlated with the EEG. - Medications Active Medications: Levetiracetam (Keppra Iv Premix*) 500 mg in 100 mls @ 400 mls/hr IV Q12H [facility] Last Admin: 08/23/17 09:07 Dose: 400 mls/hr Sodium Chloride (Ns 0.9% 1000 Ml*) 1,000 mls @ 100 mls/hr IV PER RATE [facility] Last Admin: 08/23/17 09:13 Dose: 100 mls/hr Lorazepam (Ativan Inj*) 2 mg IV PUSH Q10M PRN PRN Reason: seizure activity over 5 minute Patient loaded with levetiracetam 1000mg at 18:22 on 08/22, then received fosphenytoin 20mg/kg IV at 01:15 on 08/23 and lorazepam 2mg IV at 00:45 on 08/23. - Description Background: The waking background showed appropriate organization with clearly defined anterior-posterior voltage and frequency gradients. There was a defined posterior dominant rhythm of 9 Hertz, which was symmetrical and showed normal reactivity. Anteriorly, there was the expected pattern of lower voltage and more irregular theta and beta rhythms. The sleep background was appropriately organized with well-developed spindles and vertex waves indicative of stage 2 sleep. These sleep transients showed appropriate morphology and were bilaterally synchronous and symmetrical. Development of diffuse delta range frequencies with dropout of stage 2 architecture accompanied transition to slow wave sleep, and a lower voltage mixed frequency pattern associated with eye movements was consistent with REM sleep. Intericatal Epileptiform Activity: No epileptiform abnormalities were recorded. No areas of focal slowing were evident. Ictal Activity: The patient experienced 3 electroclinical seizures during this monitoring period , which shared similar electrical and clinical characteristics. These occurred at 19:51 and 21:24 on 08/22 and at 00:01 on 08/23. Each seizure lasted between 17 and 20 minutes. Electrographically, the seizures began with the gradual build up of moderate voltage, rhythmic 2 to 3 Hz sharp wave activity at CZ, which spread after several seconds to the right frontal region (FP2 and F4). This activity initially appeared to have positive polarity. With spread to the right frontal region, the activity increased in frequency to 4 Hz and became intermixed with theta and alpha-range activity superimposed. After 60 seconds or so, the activity spread to the right paracentral chain and the left frontal region (FP1 , F3) and the activity was primarily characterized by high voltage 2-3 Hz activity with superimposed faster frequency rhythms. The ictal activity continued to evolve in the bilateral frontal and central regions while the posterior dominant rhythm was maintained for the first 3 minutes of the seizure. Eventually, the PDR disappeared and the ictal activity consisted of bifrontal and centrally predominant 1-2 Hz sharp and slow wave activity with intermixed polyspike activity. This continued for the majority of the seizure. The PDR was noted to begin returning 12 to 13 minutes after the ictal onset, and the ictal activity tapered off in the reverse of the way in which it propagated, with the activity in the right frontal and midline regions being the last to end. The background quickly returned to normal. Clinically, the patient was noted to stop responding to those around him, seemed to have irregular or deep breathing and was unable to follow commands. However, once the PDR returned, despite ongoing ictal activity elsewhere, the patient was noted to be able to state his name when asked but still remained relatively motionless and at other times did not verbally respond when questions were asked of him. With the onset of the second seizure, the patient' s girlfriend was looking through his calendar at his request and he appeared to be able to respond relatively normally for the first 2 minutes of the seizure. He then took a deep breath and she noticed something had changed, then alerted nursing. He was noted to yawn at one point. After this seizure, he was noted to be confused, talking about equipment delivering moisture. - Impression Impression: This is an abnormal long-term monitoring session. The patient experienced 3 electroclinical seizures, all of which were prolonged , lasting between 17 and 20 minutes. The seizures began in the midline and right frontal region, then generalized but remained frontocentrally predominant , as described above. Clinically, the patient mostly remained unresponsive and motionless for the majority of the seizures, when the ictal activity was at its most diffuse, but the electrographic onset was noted to precede clinical symptoms by 2 minutes in one case. In addition, the patient regained responsiveness prior to the termination of ictal activity as well. 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 No seizures were noted after the patient received lorazepam and fosphenytoin.
[2017-08-23] MEDS ORDERED: Phenytoin IV(*) 50 MG/ML 2 ML VIAL (100 MG) IVPB SCH (16:00)
[2017-08-23] MEDS: Fosphenytoin(*) 100 MG/2 ML VIAL IV SLOW PU SCH (16:17)
[2017-08-24] MEDS: Fosphenytoin(*) 100 MG/2 ML VIAL IV SLOW PU SCH ×2 (00:11→07:43)
[2017-08-24] MEDS: Heparin VIAL(*) 5000 UNITS/ML VIAL (FIVE THOUSAND) SUBCUT SCH (00:16)
[2017-08-24] MEDS: NS 0.9% 1000 ML* 1,000 ML IV SCH (02:27)
--- NOTE | 2017-08-24 07:37 | PN ---
Subjective Date of Service: 08/24/17 Interval History: No problems overnight. Nurse reports no seizure activity. The patient feels "much better." Reports sleeping well. Now that the patient is more alert and oriented, he relates an admission from 2001 when he was involuntarily admitted for depression. At that time, he did have an episode described as a possible seizure, although the patient feels it was more stress induced. The semiology is unclear at this point but the patient was admitted briefly with some psychological issues. He was treated with some Trazodone but was discharged home on Celexa and Seroquel which he eventually stopped. He denies any further seizure like activity until this admission EEG reviewed: 3 distinct seizures captured lasting 15-20 minutes each. Dilatning level 19.2 --> 15.4 this am LP results reviewed. Protein elevated at 69 otherwise looks ok. Awaiting multiple studies, some are send-outs Family History: Unchanged from Admission Social History: Unchanged from Admission Past Medical History: Unchanged from Admission Objective Active Medications: Fosphenytoin Sodium (Cerebyx(*)) 100 mg IV SLOW PU Q8H [facility] Last Admin: 08/24/17 00:11 Dose: 100 mg Levetiracetam (Keppra Iv Premix*) 500 mg in 100 mls @ 400 mls/hr IV Q12H [facility] Last Admin: 08/23/17 20:05 Dose: 400 mls/hr Sodium Chloride (Ns 0.9% 1000 Ml*) 1,000 mls @ 100 mls/hr IV PER RATE [facility] Last Admin: 08/24/17 02:27 Dose: 100 mls/hr Lorazepam (Ativan Inj*) 2 mg IV PUSH Q10M PRN PRN Reason: seizure activity over 5 minute Vital Signs 08/23/17 08/23/17 08/23/17 09:01 09:16 09:31 Temperature Pulse Rate 40 42 Respiratory 21 13 12 Rate Blood Pressure 136/85 110/60 109/64 (mmHg) O2 Sat by Pulse 99 Oximetry 08/23/17 08/23/17 08/23/17 09:46 10:00 10:01 Temperature Pulse Rate 44 43 52 Respiratory 19 15 16 Rate Blood Pressure 109/63 106/64 (mmHg) O2 Sat by Pulse 98 100 Oximetry 08/23/17 08/23/17 08/23/17 10:36 10:45 11:00 Temperature Pulse Rate 42 42 Respiratory 13 20 14 Rate Blood Pressure 115/66 132/75 (mmHg) O2 Sat by Pulse Oximetry 08/23/17 08/23/17 08/23/17 11:01 11:16 11:30 Temperature Pulse Rate 42 45 49 Respiratory 13 12 15 Rate Blood Pressure 106/60 99/58 105/70 (mmHg) O2 Sat by Pulse 100 100 98 Oximetry 08/23/17 08/23/17 08/23/17 11:46 12:00 12:29 Temperature 97.5 F Pulse Rate 44 47 41 Respiratory 14 20 13 Rate Blood Pressure 90/59 121/75 115/66 (mmHg) O2 Sat by Pulse 100 100 Oximetry 08/23/17 08/23/17 08/23/17 12:30 12:45 13:00 Temperature Pulse Rate 42 43 48 Respiratory 12 12 18 Rate Blood Pressure 125/65 120/67 (mmHg) O2 Sat by Pulse 100 100 100 Oximetry 08/23/17 08/23/17 08/23/17 13:01 13:15 13:30 Temperature Pulse Rate 48 46 45 Respiratory 17 13 13 Rate Blood Pressure 98/64 99/65 98/63 (mmHg) O2 Sat by Pulse 99 100 100 Oximetry 08/23/17 08/23/17 08/23/17 13:45 14:00 14:12 Temperature Pulse Rate 49 51 45 Respiratory 14 14 14 Rate Blood Pressure 101/59 117/64 (mmHg) O2 Sat by Pulse 100 100 100 Oximetry 08/23/17 08/23/17 08/23/17 14:15 14:31 14:46 Temperature Pulse Rate 46 46 Respiratory 18 13 14 Rate Blood Pressure 132/74 110/50 96/55 (mmHg) O2 Sat by Pulse 100 100 Oximetry 08/23/17 08/23/17 08/23/17 15:00 15:02 15:05 Temperature Pulse Rate 45 44 44 Respiratory 14 16 14 Rate Blood Pressure 93/57 (mmHg) O2 Sat by Pulse 100 100 97 Oximetry 08/23/17 08/23/17 08/23/17 15:12 15:17 15:21 Temperature Pulse Rate 49 44 45 Respiratory 16 17 20 Rate Blood Pressure 119/73 106/57 103/64 (mmHg) O2 Sat by Pulse 100 100 100 Oximetry 08/23/17 08/23/17 08/23/17 15:30 15:40 15:51 Temperature Pulse Rate 45 45 43 Respiratory 20 18 13 Rate Blood Pressure 118/59 111/63 110/69 (mmHg) O2 Sat by Pulse 100 100 Oximetry 08/23/17 08/23/17 08/23/17 16:00 16:10 16:20 Temperature 97.5 F Pulse Rate 43 44 43 Respiratory 16 18 13 Rate Blood Pressure 101/62 91/63 116/63 (mmHg) O2 Sat by Pulse 98 99 100 Oximetry 08/23/17 08/23/17 08/23/17 16:31 16:41 17:00 Temperature Pulse Rate 45 43 46 Respiratory 16 13 14 Rate Blood Pressure 121/68 93/61 112/65 (mmHg) O2 Sat by Pulse 98 98 Oximetry 08/23/17 08/23/17 08/23/17 17:01 17:15 17:31 Temperature Pulse Rate 43 50 56 Respiratory 14 15 17 Rate Blood Pressure 96/64 115/86 (mmHg) O2 Sat by Pulse 100 100 99 Oximetry 08/23/17 08/23/17 08/23/17 17:45 18:00 18:15 Temperature Pulse Rate 42 46 47 Respiratory 15 14 13 Rate Blood Pressure 104/61 102/59 93/60 (mmHg) O2 Sat by Pulse 100 98 98 Oximetry 08/23/17 08/23/17 08/23/17 18:31 18:46 19:00 Temperature Pulse Rate 45 44 49 Respiratory 13 13 21 Rate Blood Pressure 115/60 107/66 (mmHg) O2 Sat by Pulse 100 100 Oximetry 08/23/17 08/23/17 08/23/17 19:02 19:15 19:30 Temperature Pulse Rate 53 52 52 Respiratory 16 18 15 Rate Blood Pressure 103/60 105/67 98/61 (mmHg) O2 Sat by Pulse 100 89 99 Oximetry 08/23/17 08/23/17 08/23/17 19:43 19:45 20:00 Temperature 97.6 F Pulse Rate 52 53 Respiratory 16 16 Rate Blood Pressure 91/57 87/55 (mmHg) O2 Sat by Pulse 98 96 Oximetry 08/23/17 08/23/17 08/23/17 20:01 20:15 20:30 Temperature Pulse Rate 52 50 51 Respiratory 17 17 15 Rate Blood Pressure 102/60 93/57 (mmHg) O2 Sat by Pulse 96 97 97 Oximetry 08/23/17 08/23/17 08/23/17 20:45 21:00 21:01 Temperature Pulse Rate 53 57 52 Respiratory 15 17 17 Rate Blood Pressure 104/57 89/57 (mmHg) O2 Sat by Pulse 98 100 Oximetry 08/23/17 08/23/17 08/23/17 21:15 21:30 21:45 Temperature Pulse Rate 51 51 52 Respiratory 16 14 16 Rate Blood Pressure 89/52 81/51 87/53 (mmHg) O2 Sat by Pulse 97 97 97 Oximetry 08/23/17 08/23/17 08/23/17 22:00 22:01 22:15 Temperature Pulse Rate 51 52 50 Respiratory 16 15 15 Rate Blood Pressure 88/54 92/57 (mmHg) O2 Sat by Pulse 96 96 96 Oximetry 08/23/17 08/23/17 08/23/17 22:30 22:45 23:00 Temperature Pulse Rate 49 49 Respiratory 20 14 16 Rate Blood Pressure 90/53 90/53 84/53 (mmHg) O2 Sat by Pulse 98 97 Oximetry 08/23/17 08/23/17 08/23/17 23:01 23:15 23:30 Temperature Pulse Rate 56 48 50 Respiratory 18 16 17 Rate Blood Pressure 90/53 89/56 (mmHg) O2 Sat by Pulse 99 97 95 Oximetry 08/23/17 08/24/17 08/24/17 23:33 00:00 00:01 Temperature 98.8 F Pulse Rate 53 54 Respiratory 17 19 19 Rate Blood Pressure 86/56 (mmHg) O2 Sat by Pulse 95 96 Oximetry 08/24/17 08/24/17 08/24/17 00:16 00:30 01:00 Temperature Pulse Rate 50 51 50 Respiratory 12 17 15 Rate Blood Pressure 88/57 95/57 (mmHg) O2 Sat by Pulse 98 96 96 Oximetry 08/24/17 08/24/17 08/24/17 01:01 01:30 02:00 Temperature Pulse Rate 50 48 48 Respiratory 14 14 15 Rate Blood Pressure 90/51 81/46 (mmHg) O2 Sat by Pulse 96 100 96 Oximetry 08/24/17 08/24/17 08/24/17 02:01 02:30 03:00 Temperature Pulse Rate 47 51 Respiratory 15 16 18 Rate Blood Pressure 89/54 98/63 (mmHg) O2 Sat by Pulse 96 100 Oximetry 08/24/17 08/24/1718 03:01 03:02 03:30 Temperature Pulse Rate 50 50 Respiratory 16 16 15 Rate Blood Pressure 96/65 (mmHg) O2 Sat by Pulse 98 98 Oximetry 08/24/17 08/24/17 08/24/17 04:00 04:01 04:30 Temperature 98.8 F Pulse Rate 48 49 Respiratory 16 15 14 Rate Blood Pressure 95/57 101/65 (mmHg) O2 Sat by Pulse 97 98 Oximetry 08/24/17 08/24/17 08/24/17 04:31 05:00 05:01 Temperature Pulse Rate 51 49 Respiratory 16 14 14 Rate Blood Pressure 80/56 85/51 (mmHg) O2 Sat by Pulse 96 94 Oximetry 08/24/17 08/24/17 08/24/17 05:02 05:30 05:46 Temperature Pulse Rate 49 48 Respiratory 14 16 16 Rate Blood Pressure 86/49 (mmHg) O2 Sat by Pulse 97 98 Oximetry 08/24/17 08/24/17 06:00 06:01 Temperature Pulse Rate 48 49 Respiratory 15 15 Rate Blood Pressure 105/57 (mmHg) O2 Sat by Pulse 100 98 Oximetry Oxygen Devices in Use Now: None Neurology Exam: General: Awake, Alert, Oriented x3 HEENT: Normocephelic/atraumatic, sclera anicteric, mucous membranes moist Neck: Supple Chest: Clear to auscultation bilaterally Cardiovascular: Regular rate and rhythm without murmurs, rubs, gallops Abdomen: Soft, nontender/nondistended Extremities: No clubbing, cyanosis, or edema Neurological Findings: Awake, Alert, Oriented x3 Speech: fluent without dysarthria, repetition intact Cranial Nerve: Cataracts bilaterally. Mild anisicoria right 4-->2, left 3-->2 both reactive, EOM intact, VFF, no nystagmus, face symmetric bilaterally hearing intact to finger rub bilaterally, palate elevates symmetrically, tongue midline Motor: moving all extremities, antigravity, no drift x4 tone/bulk normal Sensation: Grossly intact to LT/PP Deep Tendon Reflex: 1+ symmetric in the upper/lower extremities Finger to nose, rapid alternating movements intact without tremor Result Diagrams: 08/23/17 05:10 08/23/17 05:10 Additional Lab and Data: Continuous EEG: Shows localized seizure activity with secondarily generalizes associated with the spells. Microbiology and Other Data: Microbiology 08/22/17 20:00 Nasal Screen MRSA (PCR)(ED) - Final Nasal Mrsa Not Detected Assessment/Plan Mr. Crowe is a 67 yo male with PMH significant for "nervous breakdown", presented to the ER with new onset non-convulsive status. Etiology remains unclear. Awaiting additional CSF studies. Protein mildly elevated. No evidence for infectious process. The patient notes a prior admission in 2001 for psychiatric illness and there was reported seizure like activity at that time, although the semiology is unclear. He was treated with Celexa and Seroquel at that time. I spoke with Psychiatry who notes that he does have a history of some depression/hypomania symptoms. We discussed a mood stabilizer/ AED as a better alternative. --D/C continuous monitoring. Now seizure free > 24 hours. To floor today --MRI with contrast pending. MRI without negative --I spoke at length with the patient about his history of seizures and the possible etiologies. I explained that we are waiting on further studies but for now, I think it is prudent to remain on seizure medication as an outpatient as it is unclear to me that this was a provoked seizure secondary to meds. --Plan to d/c Dilantin --Wean off of Keppra over the next day. Given his history of depression/ hypomania, this is not a good first line medication chcf. --Load Depakote 750mg po now and then 250mg po bid with level in the am. --Will need outpatient follow up for further monitoring --Discussed the risks and benefits of Depakote. --Will need close outpatient follow up. Many of the LP labs including paraneoplastic will take several weeks. --Concern that the [place] herbal preparations that he was on may be involved. Counseled to stay off of herbal preparations --He should avoid Seroquel and Trazodone as outpaint as both can lower seizure threshold. --Discussed seizure precautions including no driving, no heights, no heavy machinery, no swimming alone, no baths/only showers and to avoid open flames. --I am off service this evening but will sign out to Dr. Toledo later today. He can likely go home tomorrow on Depakote. Please arrange follow up with me in 4-6 weeks.
[2017-08-24] MEDS ORDERED: levETIRAcetam TAB* 500 MG PO SCH (09:00)
--- NOTE | 2017-08-24 09:47 | EEG ---
HALFWAY VIDEO/EEG MONITORING - Monitoring Monitoring Start Date: 08/22/17 Current Monitoring Session: 08/23/17 at 07:33 to 08/24/17 at 09:52 EEG Clinical Indication: Keven Crowe is a 67 year-old, right-handed man who began having episodes of loss of awareness today. Pt states he hasn't slept in several days and has been under stress. 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 While in MRI, pt had another episode, details unclear as to what occurred. While hooking pt up for EEG, he was talking about consent form with tech when he began staring at the tech with R eye deviation, L eye twitching, tongue sticking in and out while yawning. Pt became unable to speak but could intially follow command to squeeze techs hand and lift R arm up. Pt then could not lower his R arm on command, lift L arm or wiggle toes in his feet. This lasted several minutes. He also had an episode of tonic-clonic movements reportedly in the ED. He is on several [place] herbal supplements. Long-term video EEG is requested due to concern for new onset, acute repetitive seizures, to characterize/localize events and monitor treatment course Introduction: INTRODUCTION: The EEG was monitored from 21 scalp electrodes. Nineteen electrodes consisted of the standard parasagittal, temporal and midline leads of the International 10 -20 system. In addition, special electrodes T1 and T2 were placed. EEG data were recorded on an [employer] system with simultaneous MPEG-4 digital video recording of patient behavior. EEG recording was in a monopolar montage with all electrodes referenced to FCz. Significant behavioral events were signaled by an event button, or putative electrical seizure events were detected by a computer program. All EEG data were reviewed in their entirety on a monitor with reconstruction of montages and adjustments of sensitivity and filtering. Simultaneous patient behavior was viewed on an adjacent monitor and correlated with the EEG. - Medications Active Medications: Sodium Chloride (Ns 0.9% 1000 Ml*) 1,000 mls @ 100 mls/hr IV PER RATE [facility] Last Admin: 08/24/17 02:27 Dose: 100 mls/hr Levetiracetam (Keppra Tab*) 500 mg PO BID [facility] Last Admin: 08/24/17 09:26 Dose: 500 mg Lorazepam (Ativan Inj*) 2 mg IV PUSH Q10M PRN PRN Reason: seizure activity over 5 minute Phenytoin Sodium (Dilantin Cap(*)) 100 mg PO TID [facility] - Description Background: The patient slept for the majority of this monitoring session. The sleep background was appropriately organized with well-developed spindles and vertex waves indicative of stage 2 sleep. These sleep transients showed appropriate morphology and were bilaterally synchronous and symmetrical. Development of diffuse delta range frequencies with dropout of stage 2 architecture accompanied transition to slow wave sleep, and a lower voltage mixed frequency pattern associated with eye movements was consistent with REM sleep When observed, the waking background showed appropriate organization with clearly defined anterior-posterior voltage and frequency gradients. There was a defined posterior dominant rhythm of 9 Hertz, which was symmetrical and showed normal reactivity. Anteriorly, there was the expected pattern of lower voltage and more irregular theta and beta rhythms. Intericatal Epileptiform Activity: None Ictal Activity: None - Impression Impression: This is a normal long-term monitoring session. The patient did not experience any further seizures, but was noted to be asleep for the majority of the recording session. There were no epileptiform abnormalities or areas of focal slowing.
--- NOTE | 2017-08-24 10:17 | PN ---
Subjective Date of Service: 08/24/17 Interval History: Patient seen and examined at bedside. Denies fever, chills, shortness of breath , chest discomfort, N/V/D. Pt states that he is feeling better. He doesn't recall yesterday. He reports that he follows with a urologist and either medication for his prostate was too expensive or he didn't like the reported side effects and didn't take them. He states that he found herbs to help with his prostate. He states that his other herbs help get rid of all the "bad inside of him". His partner Isabel would like him to be seen by Psychiatry for his "Hypomania" that he was experiencing prior to his admission. Tele: Sinus rhythm, sinus joe. Rate 40-60's Family History: Unchanged from Admission Social History: Unchanged from Admission Past Medical History: Unchanged from Admission Objective Active Medications: Sodium Chloride (Ns 0.9% 1000 Ml*) 1,000 mls @ 100 mls/hr IV PER RATE [facility] Levetiracetam (Keppra Tab*) 500 mg PO BID [facility] Lorazepam (Ativan Inj*) 2 mg IV PUSH Q10M PRN Reason: seizure activity over 5 minute Phenytoin Sodium (Dilantin Cap(*)) 100 mg PO TID [facility] Vital Signs - 8 hr 08/24/17 08/24/17 08/24/17 02:30 03:00 03:01 Temperature Pulse Rate 51 50 Respiratory 16 18 16 Rate Blood Pressure 89/54 98/63 (mmHg) O2 Sat by Pulse 100 98 Oximetry 08/24/17 08/24/17 08/24/17 03:02 03:30 04:00 Temperature 98.8 F Pulse Rate 50 Respiratory 16 15 16 Rate Blood Pressure 96/65 95/57 (mmHg) O2 Sat by Pulse 98 Oximetry 08/24/17 08/24/17 08/24/17 04:01 04:30 04:31 Temperature Pulse Rate 48 49 Respiratory 15 14 16 Rate Blood Pressure 101/65 (mmHg) O2 Sat by Pulse 97 98 Oximetry 08/24/17 08/24/17 08/24/17 05:00 05:01 05:02 Temperature Pulse Rate 51 49 49 Respiratory 14 14 14 Rate Blood Pressure 80/56 85/51 (mmHg) O2 Sat by Pulse 96 94 97 Oximetry 08/24/17 08/24/17 08/24/17 05:30 05:46 06:00 Temperature Pulse Rate 48 48 Respiratory 16 16 15 Rate Blood Pressure 86/49 105/57 (mmHg) O2 Sat by Pulse 98 100 Oximetry 08/24/17 08/24/17 08/24/17 06:01 06:30 07:00 Temperature Pulse Rate 49 49 50 Respiratory 15 14 14 Rate Blood Pressure 101/62 109/57 (mmHg) O2 Sat by Pulse 98 99 98 Oximetry 08/24/17 08/24/17 08/24/17 07:01 07:30 07:39 Temperature 99.4 F Pulse Rate 49 69 Respiratory 15 19 Rate Blood Pressure 123/71 (mmHg) O2 Sat by Pulse 100 83 Oximetry 08/24/17 08/24/17 08/24/17 08:00 08:01 08:31 Temperature Pulse Rate 55 56 53 Respiratory 18 19 18 Rate Blood Pressure 113/61 114/61 (mmHg) O2 Sat by Pulse 100 99 100 Oximetry 08/24/17 08/24/17 08/24/17 09:00 09:01 09:31 Temperature Pulse Rate 57 57 64 Respiratory 18 18 16 Rate Blood Pressure 117/68 104/63 (mmHg) O2 Sat by Pulse 99 99 100 Oximetry 08/24/17 08/24/17 10:00 10:01 Temperature Pulse Rate 67 78 Respiratory 18 19 Rate Blood Pressure 113/59 (mmHg) O2 Sat by Pulse 100 Oximetry Oxygen Devices in Use Now: None Appearance: NAD, sitting up in bed Ears/Nose/Mouth/Throat: Mucous Membranes Moist Respiratory: Symmetrical Chest Expansion and Respiratory Effort, Clear to Auscultation Cardiovascular: NL Sounds; No Murmurs; No JVD, RRR Abdominal: NL Sounds; No Tenderness; No Distention Extremities: No Edema Skin: No Rash or Ulcers Neurological: Alert and Oriented x 3, NL Muscle Strength and Tone Lines/Tubes/Other Access: Clean, Dry and Intact Peripheral IV - site benign, x2 Nutrition: Taking PO's Result Diagrams: 08/23/17 05:10 08/23/17 05:10 Additional Lab and Data: 08/22-08/23 - Continuous EEG: Shows localized seizure activity with secondarily generalizes associated with the spells. - Continuous EEG: Read pending. Microbiology and Other Data: Microbiology 08/22/17 20:00 Nasal Screen MRSA (PCR)(ED) - Final Nasal Mrsa Not Detected Assess/Plan/Problems-Billing Mr. Crowe is a 67 yo male with PMH significant for "nervous breakdown", presented to the ER with new onset non-convulsive status. Etiology remains unclear. - Patient Problems (1) Seizure Code(s): R56.9 - UNSPECIFIED CONVULSIONS SNOMED Code(s): 37863866 Comment: - Continuous EEG monitoring for now, will dc later today if no seizures overnight - S/P LP, Awaiting additional CSF studies. Protein mildly elevated. No evidence for infectious process - Recently restarted on several medications which can lower seizure threshold ( Seroquel and Trazodone), these have been stopped - Pt counseled to stop taking [place] herbal preparations - Recently has had little to no sleep for several days, has been under stress - Continue Keppra and Dilantin, changed to PO - Will plan to repeat contrasted MRI later today, once off EEG to look for any other possible intracranial cause for seizure. MRI without negative - Will need close outpatient follow up. (2) BPH (benign prostatic hyperplasia) Code(s): N40.0 - BENIGN PROSTATIC HYPERPLASIA WITHOUT LOWER URINRY TRACT SYMP SNOMED Code(s): 070867781 Comment: - Takes herbs at home, these have been stopped - No issues at this time, will continue to monitor (3) DVT prophylaxis Code(s): JSR6736 - SNOMED Code(s): 739953782 Comment: - SCDs (4) Full code status Code(s): Z78.9 - OTHER SPECIFIED HEALTH STATUS SNOMED Code(s): 873409574 Status and Disposition: Inpatient. Discharge to home when medically stable.
[2017-08-24] MEDS ORDERED: Phenytoin CAP(*) 100 MG CAP.ER PO SCH (14:00)
[2017-08-24 14:58] LABS: CSF VDRL Negative (Negative)
[2017-08-24] MEDS ORDERED: Divalproex ER TAB(*) 250 MG PO ONE (15:51)
--- NOTE | 2017-08-24 16:00 | ED ---
Parmjit Carver Angela, scribed for Lonny Duff MD on 08/22/17 at 1519 . Neurological HPI - HPI Summary HPI Summary: This pt is a 67 y/o male presenting to [facility] via EMS for a possible seizure today. 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 Upon arrival of EMS to the scene pt was in a potictal state. In the ambulance pt is talking a little bit going back to his normal state, saying he was surprised that he just had a seizure. Suddenly pt went to an altered mental status, he became mute and had a fixed gaze. 15:10 - Upon arrival to the ED pt is mute, not following commands, with a fixed gaze. He is taken to CT immediately. 15:20- Upon return to the ED from CT, pt is talking and acting his normal self. He reports he is feeling lightheaded. He had LOC because he does not remember coming in to the ED via EMS. Pt currently denies headache. The last thing he remembers is that he was in his office treating his friend with acupuncture and massage. He had a phone call from another friend and stepped out. Pt spoke with his friend on the phone and then went back to his office to continue treating his friend. This is up to where he remembers. Pt states he has not been staying at home because he has been stressed due to a situation with his girlfriend. Pt has been staying at his friend's house these past few days. Due to "unusual environment", pt has not been sleeping well. He notes it has been stressful. He reports that for several days in a row he has not been sleeping well. Pt reports 2 nights ago he started to take Trazodone and Seroquel for the first time again after 14 years. There were prescribed by PCP to help him sleep. He states that last night he had the best sleep he has had this past week. Denies hx of seizures, stroke PMHx: none. NKDA. - History of Current Complaint Stated Complaint: SEIZURE Hx Obtained From: Patient Onset/Duration: Sudden Onset, Still Present Timing: Sudden Onset Current Severity: Severe Number of Seizures: 1 Character: Lightheaded, Impaired Speech, Responsiveness Syncope Context: Witnessed - by friend, Loss of Consciousness: Yes Aggravating: Nothing Alleviating: Spontanious Resolution Associated Signs and Symptoms: Positive: Loss of Consciousness, Seizure - ?, AMS , Lightheadness. Negative: Headache - Allergy/Home Medications Allergies/Adverse Reactions: Allergies Allergy/AdvReac Type Severity Reaction Status Date / Time No Known Allergies Allergy Verified 08/22/17 15:59 Home Medications: Home Medications QUEtiapine TAB* [SEROquel TAB*] 25 mg PO BEDTIME 08/22/17 [History Confirmed ] traZODone TAB* [Desyrel TAB*] 100 mg PO BEDTIME 08/22/17 [History Confirmed ] Aconite 1 cap PO DAILY 08/23/17 [History Confirmed 08/23/17] Albizza Bark 1 cap PO DAILY 08/23/17 [History Confirmed 08/23/17] Arisaema 1 cap PO DAILY 08/23/17 [History Confirmed 08/23/17] Astragalus Root 1 gm PO DAILY 08/23/17 [History Confirmed 08/23/17] Bergamot [[place] Bergamot] 250 mg PO DAILY 08/23/17 [History Confirmed 08/23/17] Biota Seed 1 cap PO DAILY 08/23/17 [History Confirmed 08/23/17] Cistanches 1 cap PO DAILY 08/23/17 [History Confirmed 08/23/17] Curcuma 1 cap PO DAILY 08/23/17 [History Confirmed 08/23/17] Cuscuta 1 cap PO DAILY 08/23/17 [History Confirmed 08/23/17] [place] Seed 1 cap PO DAILY 08/23/17 [History Confirmed 08/23/17] Dioscorea 1 cap PO DAILY 08/23/17 [History Confirmed 08/23/17] Epimedium 1 cap PO DAILY 08/23/17 [History Confirmed 08/23/17] Ginseng 100 mg PO DAILY 08/23/17 [History Confirmed 08/23/17] Paulina Seed 1 cap PO DAILY 08/23/17 [History Confirmed 08/23/17] Lycium 1 cap PO DAILY 08/23/17 [History Confirmed 08/23/17] Melatonin (NF) 1 tab PO BEDTIME 08/23/17 [History Confirmed 08/23/17] Ophiopogon 1 cap PO DAILY 08/23/17 [History Confirmed 08/23/17] Ophipogon 1 cap PO DAILY 08/23/17 [History Confirmed 08/23/17] Peony 1 cap PO DAILY 08/23/17 [History Confirmed 08/23/17] Poly Gonum Stem 1 cap PO DAILY 08/23/17 [History Confirmed 08/23/17] Polygala 1 cap PO DAILY 08/23/17 [History Confirmed 08/23/17] Poria 1 cap PO DAILY 08/23/17 [History Confirmed 08/23/17] Psoralea 1 cap PO DAILY 08/23/17 [History Confirmed 08/23/17] Rehmannia 1 cap PO DAILY 08/23/17 [History Confirmed 08/23/17] Salvia 1 cap PO DAILY 08/23/17 [History Confirmed 08/23/17] Schizandra 1 cap PO DAILY 08/23/17 [History Confirmed 08/23/17] Tangkuei 1 cap PO DAILY 08/23/17 [History Confirmed 08/23/17] Tribulus 1 cap PO DAILY 08/23/17 [History Confirmed 08/23/17] Uncaria 1 cap PO DAILY 08/23/17 [History Confirmed 08/23/17] Zizyphus 1 cap PO DAILY 08/23/17 [History Confirmed 08/23/17] PMH/Surg Hx/FS Hx/Imm Hx Endocrine/Hematology History: Denies: Hx Diabetes Cardiovascular History: Denies: Hx Hypertension Neurological History: Denies: Hx Seizures - Family History Family History: Father and mother: colon CA. Pt is unaware of FHx of seizures. - Social History Alcohol Use: None Substance Use Type: Reports: None Smoking Status (MU): Never Smoked Tobacco Review of Systems Constitutional: Other - dehydrated Negative: Fever, Chills Eyes: Negative ENT: Negative Cardiovascular: Negative Respiratory: Negative Gastrointestinal: Negative Neurological: Other - lightheadedness, seizure, altered mental status Negative: Headache All Other Systems Reviewed And Are Negative: Yes Physical Exam - Summary Physical Exam Summary: VITAL SIGNS: Reviewed. GENERAL: Patient is a well-developed and thin male who is lying comfortable in the stretcher. Patient is not in any acute respiratory distress. HEAD AND FACE: No signs of trauma. No ecchymosis, hematomas or skull depressions. No sinus tenderness. EYES: PERRLA, EOMI x 2, No injected conjunctiva, no nystagmus. EARS: Hearing grossly intact. Ear canals and tympanic membranes are within normal limits. MOUTH: Oropharynx within normal limits. NECK: Supple, trachea is midline, no adenopathy, no JVD, no carotid bruit, no c- spine tenderness, neck with full ROM. CHEST: Symmetric, no tenderness at palpation LUNGS: Clear to auscultation bilaterally. No wheezing or crackles. CVS: Regular rate and rhythm, S1 and S2 present, no murmurs or gallops appreciated. ABDOMEN: Soft, non-tender. No signs of distention. No rebound no guarding, and no masses palpated. Bowel sounds are normal. EXTREMITIES: FROM in all major joints, no edema, no cyanosis or clubbing. NEURO: Alert and oriented x 3. No acute neurological deficits. Speech is normal and follows commands. SKIN: Dry and warm Triage Information Reviewed: Yes Vital Signs On Initial Exam: Initial Vitals Temp Pulse Resp BP Pulse Ox 98.0 F 56 13 97/65 97 08/22/17 15:13 08/22/17 15:13 08/22/17 15:13 08/22/17 15:13 08/22/17 15:13 Vital Signs Reviewed: Yes - [place] Coma Scale Best Eye Response: 4 - Spontaneous Best Motor Response: 1 - None Best Verbal Response: 1 - None Coma Scale Total: 6 Glascow Coma Scale Comments: GCS = 6 upon arrival to the ED via EMS. GCS = 15 after pt came back from radiology CT. Diagnostics - Vital Signs Vital Signs Temp Pulse Resp BP Pulse Ox 08/23/17 08:46 42 11 113/63 08/23/17 08:30 43 12 100/66 08/23/17 08:16 41 12 103/59 08/23/17 08:01 42 15 105/58 08/23/17 08:00 98 F 42 11 08/23/17 07:46 43 8 103/60 08/23/17 07:31 44 13 100/69 08/23/17 07:26 43 10 110/64 08/23/17 07:00 43 13 08/23/17 06:31 42 11 96/62 08/23/17 06:15 45 12 101/62 08/23/17 06:01 44 11 89/56 100 02/15/18 06:00 45 12 100 02/15/18 05:21 44 16 98/72 0218 05:00 44 14 02 04:40 14 95/57 02 04:31 16 93/62 0218 04:10 48 14 90/56 100 18 04:05 47 13 77/48 100 0218 04:01 46 12 82/54 02 04:00 96.7 F 48 14 100 08/23/17 03:50 46 14 86/52 100 18 03:40 50 15 86/45 98 08/23/17 03:30 48 14 83/49 97 08/23/17 03:20 51 14 81/48 96 08/23/17 03:10 50 14 80/50 100 08/23/17 03:01 51 15 100 08/23/17 03:00 52 14 77/46 99 08/23/17 02:50 52 12 87/54 100 08/23/17 02:40 52 13 80/51 100 08/23/17 02:30 54 14 80/53 100 08/23/17 02:25 52 14 77/48 97 08/23/17 02:19 51 14 79/50 97 08/23/17 02:15 52 14 77/48 97 08/23/17 02:01 48 13 97 08/23/17 02:00 52 16 83/50 95 08/23/17 01:46 58 15 77/51 95 18 01:45 58 15 77/49 95 08/23/17 01:40 59 15 82/51 95 18 01:35 57 15 87/54 95 18 01:30 57 15 89/57 97 08/23/17 01:25 51 16 101/58 95 08/23/17 01:16 57 17 113/70 99 08/23/17 01:01 54 29 95 08/23/17 01:00 53 27 100/63 95 18 00:46 49 16 98/60 95 18 00:45 16 0218 00:40 16 02 00:31 61 19 122/65 100 0218 00:15 51 23 125/73 99 02/15/18 00:01 74 123/81 98 02/15/18 00:00 74 18 98 02/14/18 23:45 47 98/61 98 02/14/18 23:31 97.2 F 02/14/18 23:30 49 107/61 97 02/14/18 23:15 52 93/55 97 02/14/18 23:01 51 97 02/14/18 23:00 52 14 96/55 97 02/14/18 22:45 52 94/55 97 02/14/18 22:38 52 98 02/14/18 22:37 51 98 02/14/18 22:30 51 106/60 99 02/14/18 22:15 50 110/65 99 0214/18 22:01 59 23 124/85 100 0214/18 22:00 66 12 98 02/14/18 21:45 54 18 108/67 99 02/14/18 21:31 53 30 123/69 100 02/14/18 21:17 51 15 100 02/14/18 21:15 50 18 113/67 100 02/14/18 21:14 50 21 112/65 99 02/14/18 21:00 51 21 100 02/14/18 20:45 50 19 114/73 100 02/14/18 20:30 52 16 112/69 98 02/14/18 20:15 49 22 111/62 100 02/14/18 20:01 53 25 100 02/14/18 20:00 99.5 F 54 24 126/70 100 02/14/18 19:45 52 25 100/67 99 02/14/18 19:30 53 14 108/65 99 02/14/18 19:15 54 14 116/69 100 02/14/18 19:01 51 26 116/75 100 02/14/18 19:00 47 16 90 02/14/18 18:45 49 16 126/73 100 02/14/18 18:30 51 19 134/77 100 02/14/18 18:17 52 20 100 02/14/18 18:16 52 18 100 02/14/18 18:15 54 20 135/74 100 02/14/18 18:02 98.3 F 52 27 122/71 98 02/14/18 18:00 98.3 F 59 20 122/71 97 02/14/18 17:57 54 18 131/64 08/22/17 17:54 56 100 08/22/17 16:30 57 19 105/61 99 08/22/17 16:00 61 18 121/67 99 08/22/17 15:43 61 19 100 08/22/17 15:30 99/63 08/22/17 15:13 98.0 F 56 13 97/65 97 - Laboratory Lab Results: Lab Results 08/22/17 08/22/17 08/22/17 Range/Units 15:27 15:36 15:36 WBC 6.8 (3.5-10.8) 10^3/ul RBC 4.38 (4.0-5.4) 10^6/ul Hgb 13.2 L (14.0-18.0) g/dl Hct 39 L (42-52) % MCV 89 (80-94) fL MCH 30 (27-31) pg MCHC 34 (31-36) g/dl RDW 13 (10.5-15) % Plt Count 199 (150-450) 10^3/ul MPV 9 (7.4-10.4) um3 Neut % (Auto) 71.6 (38-83) % Lymph % (Auto) 19.7 L (25-47) % [place] % (Auto) 6.1 (1-9) % Eos % (Auto) 1.8 (0-6) % Baso % (Auto) 0.8 (0-2) % Absolute Neuts (auto) 4.9 (1.5-7.7) 10^3/ul Absolute Lymphs (auto) 1.3 (1.0-4.8) 10^3/ul Absolute Monos (auto) 0.4 (0-0.8) 10^3/ul Absolute Eos (auto) 0.1 (0-0.6) 10^3/ul Absolute Basos (auto) 0.1 (0-0.2) 10^3/ul Absolute Nucleated RBC 0 10^3/ul Nucleated RBC % 0 INR (Anticoag Therapy) 0.89 (0.77-1.02) APTT 24.2 L (26.0-36.3) seconds ABG pH (7.35-7.45) ABG pCO2 (35-45) mmHg ABG pO2 (80-100) mmHg ABG HCO3 (19-31) mmol/L ABG O2 Saturation (95-98) % ABG Base Excess (-2.0-2.0) Sodium (133-145) mmol/L Potassium (3.5-5.0) mmol/L Chloride (101-111) mmol/L Carbon Dioxide (22-32) mmol/L Anion Gap (2-11) mmol/L BUN (6-24) mg/dL Creatinine (0.67-1.17) mg/dL Est GFR ( Amer) (>60) Est GFR (Non-Af Amer) (>60) BUN/Creatinine Ratio (8-20) Glucose (70-100) mg/dL POC Glucose (mg/dL) 118 H (70-100) mg/dL Lactic Acid (0.5-2.0) mmol/L Calcium (8.6-10.3) mg/dL Phosphorus (2.5-5.0) mg/dL Magnesium (1.9-2.7) mg/dL Total Bilirubin (0.2-1.0) mg/dL AST (13-39) U/L ALT (7-52) U/L Alkaline Phosphatase (34-104) U/L Troponin I (<0.04) ng/mL Total Protein (6.4-8.9) g/dL Albumin (3.2-5.2) g/dL Globulin (2-4) g/dL Albumin/Globulin Ratio (1-3) Triglycerides mg/dL Cholesterol mg/dL LDL Cholesterol mg/dL HDL Cholesterol mg/dL Urine Color Urine Appearance Urine pH (5-9) Ur Specific [place] (1.010-1.030) Urine Protein (Negative) Urine Ketones (Negative) Urine Blood (Negative) Urine Nitrate (Negative) Urine Bilirubin (Negative) Urine Urobilinogen (Negative) Ur Leukocyte Esterase (Negative) Urine Glucose (Negative) Blood Type Antibody Screen 08/22/17 08/22/17 08/22/17 Range/Units 15:36 15:36 15:36 WBC (3.5-10.8) 10^3/ul RBC (4.0-5.4) 10^6/ul Hgb (14.0-18.0) g/dl Hct (42-52) % MCV (80-94) fL MCH (27-31) pg MCHC (31-36) g/dl RDW (10.5-15) % Plt Count (150-450) 10^3/ul MPV (7.4-10.4) um3 Neut % (Auto) (38-83) % Lymph % (Auto) (25-47) % [place] % (Auto) (1-9) % Eos % (Auto) (0-6) % Baso % (Auto) (0-2) % Absolute Neuts (auto) (1.5-7.7) 10^3/ul Absolute Lymphs (auto) (1.0-4.8) 10^3/ul Absolute Monos (auto) (0-0.8) 10^3/ul Absolute Eos (auto) (0-0.6) 10^3/ul Absolute Basos (auto) (0-0.2) 10^3/ul Absolute Nucleated RBC 10^3/ul Nucleated RBC % INR (Anticoag Therapy) (0.77-1.02) APTT (26.0-36.3) seconds ABG pH (7.35-7.45) ABG pCO2 (35-45) mmHg ABG pO2 (80-100) mmHg ABG HCO3 (19-31) mmol/L ABG O2 Saturation (95-98) % ABG Base Excess (-2.0-2.0) Sodium 134 (133-145) mmol/L Potassium 4.4 (3.5-5.0) mmol/L Chloride 103 (101-111) mmol/L Carbon Dioxide 21 L (22-32) mmol/L Anion Gap 10 (2-11) mmol/L BUN 17 (6-24) mg/dL Creatinine 1.34 H (0.67-1.17) mg/dL Est GFR ( Amer) 68.4 (>60) Est GFR (Non-Af Amer) 53.2 (>60) BUN/Creatinine Ratio 12.7 (8-20) Glucose 107 H (70-100) mg/dL POC Glucose (mg/dL) (70-100) mg/dL Lactic Acid 4.8 H* (0.5-2.0) mmol/L Calcium 9.4 (8.6-10.3) mg/dL Phosphorus (2.5-5.0) mg/dL Magnesium (1.9-2.7) mg/dL Total Bilirubin 0.50 (0.2-1.0) mg/dL AST 29 (13-39) U/L ALT 37 (7-52) U/L Alkaline Phosphatase 57 (34-104) U/L Troponin I 0.00 (<0.04) ng/mL Total Protein 6.2 L (6.4-8.9) g/dL Albumin 3.9 (3.2-5.2) g/dL Globulin 2.3 (2-4) g/dL Albumin/Globulin Ratio 1.7 (1-3) Triglycerides 91 mg/dL Cholesterol 149 mg/dL LDL Cholesterol 63 mg/dL HDL Cholesterol 67.6 mg/dL Urine Color Urine Appearance Urine pH (5-9) Ur Specific [place] (1.010-1.030) Urine Protein (Negative) Urine Ketones (Negative) Urine Blood (Negative) Urine Nitrate (Negative) Urine Bilirubin (Negative) Urine Urobilinogen (Negative) Ur Leukocyte Esterase (Negative) Urine Glucose (Negative) Blood Type O Negative Antibody Screen Negative 08/22/17 08/22/17 08/23/17 Range/Units 20:50 22:10 02:06 WBC (3.5-10.8) 10^3/ul RBC (4.0-5.4) 10^6/ul Hgb (14.0-18.0) g/dl Hct (42-52) % MCV (80-94) fL MCH (27-31) pg MCHC (31-36) g/dl RDW (10.5-15) % Plt Count (150-450) 10^3/ul MPV (7.4-10.4) um3 Neut % (Auto) (38-83) % Lymph % (Auto) (25-47) % [place] % (Auto) (1-9) % Eos % (Auto) (0-6) % Baso % (Auto) (0-2) % Absolute Neuts (auto) (1.5-7.7) 10^3/ul Absolute Lymphs (auto) (1.0-4.8) 10^3/ul Absolute Monos (auto) (0-0.8) 10^3/ul Absolute Eos (auto) (0-0.6) 10^3/ul Absolute Basos (auto) (0-0.2) 10^3/ul Absolute Nucleated RBC 10^3/ul Nucleated RBC % INR (Anticoag Therapy) (0.77-1.02) APTT (26.0-36.3) seconds ABG pH (7.35-7.45) ABG pCO2 (35-45) mmHg ABG pO2 (80-100) mmHg ABG HCO3 (19-31) mmol/L ABG O2 Saturation (95-98) % ABG Base Excess (-2.0-2.0) Sodium (133-145) mmol/L Potassium (3.5-5.0) mmol/L Chloride (101-111) mmol/L Carbon Dioxide (22-32) mmol/L Anion Gap (2-11) mmol/L BUN (6-24) mg/dL Creatinine (0.67-1.17) mg/dL Est GFR ( Amer) (>60) Est GFR (Non-Af Amer) (>60) BUN/Creatinine Ratio (8-20) Glucose (70-100) mg/dL POC Glucose (mg/dL) 130 H (70-100) mg/dL Lactic Acid 0.5 (0.5-2.0) mmol/L Calcium (8.6-10.3) mg/dL Phosphorus (2.5-5.0) mg/dL Magnesium (1.9-2.7) mg/dL Total Bilirubin (0.2-1.0) mg/dL AST (13-39) U/L ALT (7-52) U/L Alkaline Phosphatase (34-104) U/L Troponin I (<0.04) ng/mL Total Protein (6.4-8.9) g/dL Albumin (3.2-5.2) g/dL Globulin (2-4) g/dL Albumin/Globulin Ratio (1-3) Triglycerides mg/dL Cholesterol mg/dL LDL Cholesterol mg/dL HDL Cholesterol mg/dL Urine Color Yellow Urine Appearance Clear Urine pH 5.0 (5-9) Ur Specific [place] 1.035 H (1.010-1.030) Urine Protein Negative (Negative) Urine Ketones 1+ H (Negative) Urine Blood Negative (Negative) Urine Nitrate Negative (Negative) Urine Bilirubin Negative (Negative) Urine Urobilinogen Negative (Negative) Ur Leukocyte Esterase Negative (Negative) Urine Glucose Negative (Negative) Blood Type Antibody Screen 08/23/17 08/23/17 08/23/17 Range/Units 04:55 05:10 05:10 WBC (3.5-10.8) 10^3/ul RBC (4.0-5.4) 10^6/ul Hgb (14.0-18.0) g/dl Hct (42-52) % MCV (80-94) fL MCH (27-31) pg MCHC (31-36) g/dl RDW (10.5-15) % Plt Count (150-450) 10^3/ul MPV (7.4-10.4) um3 Neut % (Auto) (38-83) % Lymph % (Auto) (25-47) % [place] % (Auto) (1-9) % Eos % (Auto) (0-6) % Baso % (Auto) (0-2) % Absolute Neuts (auto) (1.5-7.7) 10^3/ul Absolute Lymphs (auto) (1.0-4.8) 10^3/ul Absolute Monos (auto) (0-0.8) 10^3/ul Absolute Eos (auto) (0-0.6) 10^3/ul Absolute Basos (auto) (0-0.2) 10^3/ul Absolute Nucleated RBC 10^3/ul Nucleated RBC % INR (Anticoag Therapy) 0.90 (0.77-1.02) APTT (26.0-36.3) seconds ABG pH 7.37 (7.35-7.45) ABG pCO2 33 L (35-45) mmHg ABG pO2 96 (80-100) mmHg ABG HCO3 20.7 (19-31) mmol/L ABG O2 Saturation 98.7 H (95-98) % ABG Base Excess -5.4 L (-2.0-2.0) Sodium 137 (133-145) mmol/L Potassium 4.1 (3.5-5.0) mmol/L Chloride 111 (101-111) mmol/L Carbon Dioxide 22 (22-32) mmol/L Anion Gap 4 (2-11) mmol/L BUN 14 (6-24) mg/dL Creatinine 1.07 (0.67-1.17) mg/dL Est GFR ( Amer) 88.7 (>60) Est GFR (Non-Af Amer) 68.9 (>60) BUN/Creatinine Ratio 13.1 (8-20) Glucose 108 H (70-100) mg/dL POC Glucose (mg/dL) (70-100) mg/dL Lactic Acid (0.5-2.0) mmol/L Calcium 8.0 L (8.6-10.3) mg/dL Phosphorus 2.4 L (2.5-5.0) mg/dL Magnesium 2.1 (1.9-2.7) mg/dL Total Bilirubin 0.60 (0.2-1.0) mg/dL AST 44 H (13-39) U/L ALT 32 (7-52) U/L Alkaline Phosphatase 52 (34-104) U/L Troponin I (<0.04) ng/mL Total Protein 5.3 L (6.4-8.9) g/dL Albumin 3.5 (3.2-5.2) g/dL Globulin 1.8 L (2-4) g/dL Albumin/Globulin Ratio 1.9 (1-3) Triglycerides mg/dL Cholesterol mg/dL LDL Cholesterol mg/dL HDL Cholesterol mg/dL Urine Color Urine Appearance Urine pH (5-9) Ur Specific [place] (1.010-1.030) Urine Protein (Negative) Urine Ketones (Negative) Urine Blood (Negative) Urine Nitrate (Negative) Urine Bilirubin (Negative) Urine Urobilinogen (Negative) Ur Leukocyte Esterase (Negative) Urine Glucose (Negative) Blood Type Antibody Screen 08/23/17 08/23/17 Range/Units 05:10 05:10 WBC 7.8 (3.5-10.8) 10^3/ul RBC 4.36 (4.0-5.4) 10^6/ul Hgb 13.1 L (14.0-18.0) g/dl Hct 39 L (42-52) % MCV 90 (80-94) fL MCH 30 (27-31) pg MCHC 34 (31-36) g/dl RDW 14 (10.5-15) % Plt Count 176 (150-450) 10^3/ul MPV 9 (7.4-10.4) um3 Neut % (Auto) (38-83) % Lymph % (Auto) (25-47) % [place] % (Auto) (1-9) % Eos % (Auto) (0-6) % Baso % (Auto) (0-2) % Absolute Neuts (auto) (1.5-7.7) 10^3/ul Absolute Lymphs (auto) (1.0-4.8) 10^3/ul Absolute Monos (auto) (0-0.8) 10^3/ul Absolute Eos (auto) (0-0.6) 10^3/ul Absolute Basos (auto) (0-0.2) 10^3/ul Absolute Nucleated RBC 10^3/ul Nucleated RBC % INR (Anticoag Therapy) (0.77-1.02) APTT (26.0-36.3) seconds ABG pH (7.35-7.45) ABG pCO2 (35-45) mmHg ABG pO2 (80-100) mmHg ABG HCO3 (19-31) mmol/L ABG O2 Saturation (95-98) % ABG Base Excess (-2.0-2.0) Sodium (133-145) mmol/L Potassium (3.5-5.0) mmol/L Chloride (101-111) mmol/L Carbon Dioxide (22-32) mmol/L Anion Gap (2-11) mmol/L BUN (6-24) mg/dL Creatinine (0.67-1.17) mg/dL Est GFR ( Amer) (>60) Est GFR (Non-Af Amer) (>60) BUN/Creatinine Ratio (8-20) Glucose (70-100) mg/dL POC Glucose (mg/dL) (70-100) mg/dL Lactic Acid 1.0 (0.5-2.0) mmol/L Calcium (8.6-10.3) mg/dL Phosphorus (2.5-5.0) mg/dL Magnesium (1.9-2.7) mg/dL Total Bilirubin (0.2-1.0) mg/dL AST (13-39) U/L ALT (7-52) U/L Alkaline Phosphatase (34-104) U/L Troponin I (<0.04) ng/mL Total Protein (6.4-8.9) g/dL Albumin (3.2-5.2) g/dL Globulin (2-4) g/dL Albumin/Globulin Ratio (1-3) Triglycerides mg/dL Cholesterol mg/dL LDL Cholesterol mg/dL HDL Cholesterol mg/dL Urine Color Urine Appearance Urine pH (5-9) Ur Specific [place] (1.010-1.030) Urine Protein (Negative) Urine Ketones (Negative) Urine Blood (Negative) Urine Nitrate (Negative) Urine Bilirubin (Negative) Urine Urobilinogen (Negative) Ur Leukocyte Esterase (Negative) Urine Glucose (Negative) Blood Type Antibody Screen Result Diagrams: 08/23/17 05:10 08/23/17 05:10 Lab Statement: Any lab studies that have been ordered have been reviewed, and results considered in the medical decision making process. - Radiology Chest XR Xray Interpretation: No Acute Changes - IMPRESSION: No active cardiopulmonarhy disease. Dr. Duff has reviewed this radiology report. Radiology Interpretation Completed By: Radiologist - CT Brain CT CT Interpretation: Positive (See Comments) - IMPRESSION: 1. The tip pf the basilar artery is hyperdense possibly representing thrombus. Recommend an MRI and MRA of the brain for further evaluation. 2. Effusion within the left mastoid air cells. Dr. Duff has reviewed this radiology report. CT Interpretation Completed By: Radiologist Head CTA CT Interpretation: No Acute Changes - IMPRESSION: CTA of the neck and head demonstrates no evidence of stenosis or branch occlusion. No abnormal calcifications is noted. No aneurysmal dilatation is identified. Dr. Duff has reviewed this radiology report. CT Interpretation Completed By: Radiologist - EKG 15:27 Cardiac Rate: NL EKG Rhythm: Sinus Rhythm - at 66 bpm EKG Interpretation: No ST elevation. National [employer] - NIH Scale Level of Consciousness: Alert/Keenly Responsive - NIH Scale after pt came back from CT Ask Patient the Month and His/Her Age: Both Correct Ask Pt to Open/Close Eyes and Hazard Mitigation Officer/Release Non-Paretic Hand: Both Correctly Best Gaze (Only Horizontal Eye Movement): Normal Visual Field Testing: No Visual Loss Facial Paresis-Pt to Smile & Close Eyes or Grimace Symmetry: Normal/Symmetrical Motor Function - Right Arm: No Drift-Holds 10 Seconds Motor Function - Left Arm: No Drift-Holds 10 Seconds Motor Function - Right Leg: No Drift-Holds 10 Seconds Motor Function - Left Leg: No Drift-Holds 10 Seconds Limb Ataxia-Must be out of Proportion to Weakness Present: Absent Sensory (Use Pinprick to Test Arms/Legs/Trunk/Face): Normal Best Language (Describe Picture, Name Items): No Aphasia Dysarthria (Read Several Words): Normal Extinction and Inattention: No Abnormality Total Score: 0 NIH Scale - NIH Scale Level of Consciousness: Only Reflex Motor/Unresponsive Ask Patient the Month and His/Her Age: Neither Correct/Aphasic Ask Pt to Open/Close Eyes and Hazard Mitigation Officer/Release Non-Paretic Hand: Neither Correctly Best Gaze (Only Horizontal Eye Movement): Normal Visual Field Testing: No Visual Loss Facial Paresis-Pt to Smile & Close Eyes or Grimace Symmetry: Normal/Symmetrical Motor Function - Right Arm: No Movement Motor Function - Left Arm: No Movement Motor Function - Right Leg: No Movement Motor Function - Left Leg: No Movement Limb Ataxia-Must be out of Proportion to Weakness Present: Present in Two Limbs Sensory (Use Pinprick to Test Arms/Legs/Trunk/Face): Severe to Total Loss Best Language (Describe Picture, Name Items): Mute/Global Aphasia Dysarthria (Read Several Words): Unintelligible or Mute Extinction and Inattention: Profound Sai-Inattention Total Score: 34 NIH Stroke Scale Comment: The pt is unable to follow any commands, the pt is mute and does not follow any commands. This is not a good NIH scale. Re-Evaluation - Re-Evaluation First Eval Re-Evaluation Time: 15:20 Comment: Dr. Cerda, neurologist, at bedside. Course/Dx - Course Assessment/Plan: This pt is a 67 y/o male presenting to [facility] via EMS for a possible seizure today. 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 Upon arrival of EMS to the scene pt was in a potictal state. In the ambulance pt is talking a little bit going back to his normal state, saying he was surprised that he just had a seizure. Suddenly pt went to an altered mental status, he became mute and had a fixed gaze. 15:10 - Upon arrival to the ED pt is mute, not following commands, with a fixed gaze. He is taken to CT immediately. 15:20- Upon return to the ED from CT, pt is talking and acting his normal self. He reports he is feeling lightheaded. He had LOC because he does not remember coming in to the ED via EMS. Pt currently denies headache. Test results without any significant abnormalities except for creatinine of 1.34, lactic acid of 4.8. Head CT: 1. The tip pf the basilar artery is hyperdense possibly representing thrombus. Recommend an MRI and MRA of the brain for further evaluation. 2. Effusion within the left mastoid air cells. Initially we called a code pisano since the pt was no responding and he was mute. After the pt returned from head CT, the pt was alert and oriented x3. NIH score was 0. At this point I discussed the pts case with Dr. Cerda, neurologist, who recommended a CTA. Head CTA: CTA of the neck and head demonstrates no evidence of stenosis or branch occlusion. No abnormal calcifications is noted. No aneurysmal dilatation is identified. After that the pt was given aspirin. Dr. Cerda, neurologist, recommended an MRI and EEG. After these tests he recommended the pt to be admitted to the hospitalist. I discussed the case with Dr. Eddy, hospitalist, who has agreed to admit the pt. Pt is hemodynamically stable, alert and oriented x3. - Differential Dx Differential Diagnoses Neuro: Positive: Benign Paroxysmal Positional Vertigo, Cerebrovascular Accident, Seizure Disorder, Transient Ischemic Attack, Vasovagal Reaction - Diagnoses Provider Diagnoses: seizure vs CVA During the Visit The Following Alert/Code Occurred: Code Pisano - at 15:13 - Physician Notifications Discussed Care Of Patient With: Stephen Eddy Time Discussed With Above Provider: 16:56 Instructed by Provider To: Other - I discussed pt care with Dr. Eddy, hospitalist, who has agreed to admit the pt. - Critical Care Time Critical Care Time: 75-104 min Discharge - Discharge Plan Condition: Stable Disposition: ADMITTED TO [facility] The documentation as recorded by the Parmjit tineo Angela accurately reflects the service I personally performed and the decisions made by , Lonny Duff MD.
[2017-08-24] MEDS ORDERED: Gadoteridol* (CONTRAST) 279.3 MG/ML 10 ML IV ONE (17:17)
--- NOTE | 2017-08-24 19:10 | RAD ---
INDICATION: History of seizures. Normal noncontrast examination August 22, 2017 COMPARISON: MRI brain August 22, 2017 TECHNIQUE: Multiplanar T1 weighted FLAIR images were obtained. FINDINGS: Craniocervical junction: The craniocervical junction appears normal. Ventricles/sulci: The ventricles and cisterns are normal in size and configuration for age. Brain parenchyma: There are no focal parenchymal abnormalities. There is no evidence of intracranial mass or mass effect. The diffusion weighted images show no evidence of acute ischemia. Intracranial hemorrhage: Best evaluated on prior incomplete MRI the brain. No hemorrhage is identified.. Extra-axial spaces: There are no extra-axial fluid collections or masses. Orbits: There are no MR abnormalities of the orbital structures. Paranasal sinuses/mastoid: Bilateral ethmoid and maxillary antral mucous process thickening consistent with mild chronic sinusitis. Vascular: No abnormalities are seen. Other: None IMPRESSION: NO EVIDENCE OF INTRACRANIAL MASS OR ABNORMAL ENHANCEMENT. CHRONIC SINUSITIS.
[2017-08-24] MEDS: Divalproex ER TAB(*) 250 MG PO SCH (19:38)
[2017-08-24] MEDS: levETIRAcetam TAB* 500 MG PO SCH (19:38)
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
[2017-08-25] MEDS: levETIRAcetam TAB* 500 MG PO SCH (08:43)
[2017-08-25] MEDS: Divalproex ER TAB(*) 250 MG PO SCH (08:43)
[2017-08-25 11:52] VITALS: BP 114/58
--- NOTE | 2017-08-25 12:48 | PN ---
Subjective Date of Service: 08/25/17 Interval History: Patient states that he is feeling better. No complaints of difficulty with mentation. Denies chest pain or shortness of breath. Denies abd pain,n/v/d Family History: Unchanged from Admission Social History: Unchanged from Admission Past Medical History: Unchanged from Admission Objective Active Medications: Divalproex Sodium (Depakote Er Tab(*)) 250 mg PO BID TAY Last Admin: 08/25/17 08:43 Dose: 250 mg Lorazepam (Ativan Inj*) 2 mg IV PUSH Q10M PRN PRN Reason: seizure activity over 5 minute Vital Signs - 8 hr 08/25/17 08/25/17 08/25/17 07:18 08:00 11:32 Temperature 97.8 F 98.1 F Pulse Rate 59 58 Respiratory 16 16 16 Rate Blood Pressure 121/66 114/58 (mmHg) O2 Sat by Pulse 100 100 98 Oximetry Oxygen Devices in Use Now: None Appearance: sittingin the chair playing chest with his friend , no complaits appears comfortable Eyes: No Scleral Icterus Ears/Nose/Mouth/Throat: Clear Oropharnyx, Mucous Membranes Moist Neck: NL Appearance and Movements; NL JVP, Trachea Midline Respiratory: Symmetrical Chest Expansion and Respiratory Effort, Clear to Auscultation Cardiovascular: NL Sounds; No Murmurs; No JVD, RRR, No Edema Abdominal: NL Sounds; No Tenderness; No Distention Extremities: No Edema, No Clubbing, Cyanosis Skin: No Rash or Ulcers Neurological: Alert and Oriented x 3, NL Muscle Strength and Tone Nutrition: Taking PO's Result Diagrams: 08/23/17 05:10 08/23/17 05:10 Additional Lab and Data: 08/22-08/23 - Continuous EEG: Shows localized seizure activity with secondarily generalizes associated with the spells. 08/23-08/24 - Continuous EEG: Read pending. Microbiology and Other Data: Microbiology 08/22/17 20:00 Nasal Screen MRSA (PCR)(ED) - Final Nasal Mrsa Not Detected Assess/Plan/Problems-Billing Mr. Crowe is a 67 yo male with PMH significant for "nervous breakdown", presented to the ER with new onset non-convulsive status. Etiology remains unclear. - Patient Problems (1) Seizure Status: Acute Code(s): R56.9 - UNSPECIFIED CONVULSIONS SNOMED Code(s): 40666073 Comment: - Continuous monitoring d/c'd~ no further complaints - S/P LP, Awaiting additional CSF studies. Protein mildly elevated. No evidence for infectious process - Recently restarted on several medications which can lower seizure threshold ( Seroquel and Trazodone), these have been stopped - Pt counseled to stop taking [place] herbal preparations - Recently has had little to no sleep for several days, has been under stress - Dilantin d/c'd ~will wean keppra and d/c ~ depakote 250 mg po in the AM and Depakote 500 mg in PM - MRI was negative - Will need close outpatient follow up will follow up with PMD on 08/29 as scheduled~ will need repeat CBC, BMP and Valproic acid (2) BPH (benign prostatic hyperplasia) Status: Chronic Code(s): N40.0 - BENIGN PROSTATIC HYPERPLASIA WITHOUT LOWER URINRY TRACT SYMP SNOMED Code(s): 621406433 Comment: - Takes herbs at home, these have been stopped - No issues at this time, will continue to monitor (3) DVT prophylaxis Status: Acute Code(s): FEY1047 - SNOMED Code(s): 434116809 Comment: - SCDs (4) Full code status Status: Acute Code(s): Z78.9 - OTHER SPECIFIED HEALTH STATUS SNOMED Code(s) : 027989527 Status and Disposition: Inpatient. will discharge home follow up with PCP on 08/[address] Cerda 4 to 6 weeks repeat cbc,bmp and valproic acid on sunday
[2017-08-25] MEDS ORDERED: Divalproex ER TAB(*) 500 MG PO SCH (21:00)
[2017-08-26] MEDS ORDERED: Divalproex ER TAB(*) 500 MG PO SCH (09:00)
--- NOTE | 2017-08-26 11:54 | PN ---
PROGRESS NOTE: DATE OF VISIT: 08/25/17 PATIENT OF: Dr. Cuellar, Dr. Oleary, and Dr. Cerda. HISTORY: This 67-year-old man who was in subclinical status. He has had no further seizures that people are aware of. No staring spells or difficulty speaking. He is in the process of being switched from his Neurontin to Depakote and his Depakote level this morning was 43. He has had no clear side effects and he would like to go home. CURRENT MEDICATIONS: Include: 1. Depakote 250 twice a day. 2. Ativan p.r.n. PHYSICAL EXAMINATION: Temperature 98.1, pulse 58, respirations 16, blood pressure 114/58. He is alert and oriented with normal speech and comprehension. Cranial nerves II through XII intact. Motor exam revealed normal tone and strength and gait. Sensation is intact. Chest: Clear. Cardiovascular: Regular rate and rhythm. Abdomen is soft with positive bowel sounds. IMAGING: His MRI with contrast was negative. ASSESSMENT AND PLAN: His Depakote was 43 this morning. His level was a little low after 750 bolus. He only weighs about 130 pounds, so he is small, but I will increase his Depakote to 250 in the morning, 500 at night and please have him check level later this week in 5 or 6 days with a copy to go to Dr. Cerda. I will be speaking to Dr. Cuellar about this. I am also asking for an EEG to be done if possible prior to seeing Dr. Cerda in the next few weeks' time because he was having some clinical status. will call this weekend and Dr. Cerda next week. If there is any difficulty speaking or any unresponsive staring spells, I reviewed the side effects of Depakote including allergic reactions with the family [facility] and call promptly if it looks like he is developing allergic reaction. In addition to the Depakote level, he should have liver function test and a CBC with his blood work. Thank you for sharing this case. [id number]/[facility] #: [id number] [facility]
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
== END 2017-08-25 14:30 | disposition home or self-care (01) | DRG 100 ==
LOC: ED 15:11 → ICU 17:25 → OBSVTOIN 08-23 09:00 → MED 08-24 14:07
PROVIDERS: ADMIT Internal Medicine; ATTEND Hospitalist
PROC: 4A10X4Z Monitoring of Central Nervous Electrical Activity, External Approach (ICD-10-PCS; 2017-08-22)
PROC: 009U3ZX Drainage of Spinal Canal, Percutaneous Approach, Diagnostic (ICD-10-PCS; principal; 2017-08-23)
PROC: 02HV33Z Insertion of Infusion Device into Superior Vena Cava, Percutaneous Approach (ICD-10-PCS; 2017-08-23)
DX: R56.9 Unspecified convulsions (principal); R40.2312 Coma scale, best motor response, none, at arrival to emergency department; R40.2212 Coma scale, best verbal response, none, at arrival to emergency department; F31.81 Bipolar II disorder; G47.00 Insomnia, unspecified; E86.0 Dehydration; F29 Unspecified psychosis not due to a substance or known physiological condition; R40.2142 Coma scale, eyes open, spontaneous, at arrival to emergency department; R29.734 NIHSS score 34; R40.0 Somnolence; J32.9 Chronic sinusitis, unspecified; N40.1 Benign prostatic hyperplasia with lower urinary tract symptoms; R39.15 Urgency of urination; Z81.8 Family history of other mental and behavioral disorders; Z82.3 Family history of stroke; Z91.048 Other nonmedicinal substance allergy status; Z82.49 Family history of ischemic heart disease and other diseases of the circulatory system; Z83.3 Family history of diabetes mellitus; Z80.0 Family history of malignant neoplasm of digestive organs; Z80.49 Family history of malignant neoplasm of other genital organs; Z80.41 Family history of malignant neoplasm of ovary
CPT/HCPCS: 36415; 36600; 70450; 70496; 70498; 70551; 70552; 71045; 80053; 80061; 80164; 80185; 81003; 82164; 82784; 82803; 82945; 83519; 83520; 83605; 83735; 84100; 84155; 84157; 84165; 84484; 85025; 85027; 85610; 85730; 86255; 86256; 86341; 86592; 86618; 86635; 86788; 86789; 86850; 86900; 86901; 87070; 87205; 87529; 87641; 87798; 87899; 89051; 93005; 95951; 99285; A9270-GY; A9579; G0378; J1165; J1644; J2060; Q9967

== ENCOUNTER 2017-09-01 17:13 | Emergency (ER) | payer MEDICARE ==
[2017-09-01] MEDS ORDERED: LORazepam TAB(*) 1 MG PO ONE (18:19)
--- NOTE | 2017-09-01 18:40 | UC ---
Rochelle Carver Emily, scribed for Keven Franklin MD on 09/01/17 at 1801 . General HPI - HPI Summary HPI Summary: This patient is a 67 year old M presenting to urgent care accompanied by family with a chief complaint of insomnia that began 4 days ago. The patient rates the pain 0/10 in severity. Symptoms aggravated by nothing. Symptoms alleviated by nothing. Patient reports tachypnea, weakness, and fatigue. Pt reports three episodes today when he cannot speak or move. Pt denies these symptoms being different than his previous seizure symptoms. Pt reports being recently hospitalized for seizures - History of Current Complaint Chief Complaint: UCGeneralIllness Stated Complaint: FATIGUE,RESTLESSNESS Time Seen by Provider: 09/01/17 17:46 Hx Obtained From: Patient Onset/Duration: Sudden Onset, Lasting Days, Still Present Onset Severity: Mild Current Severity: Mild Pain Intensity: 0 Aggravating: Nothing Alleviating: Nothing Associated Signs & Symptoms: Positive: Weakness, Other - Positive tachypnea - Allergy/Home Medications Allergies/Adverse Reactions: Allergies Allergy/AdvReac Type Severity Reaction Status Date / Time quetiapine [From Seroquel] Allergy Altered Verified 09/01/17 17:30 Mental Status trazodone Allergy Altered Verified 09/01/17 17:30 Mental Status Home Medications: Home Medications Divalproex ER TAB(*) [Depakote ER TAB(*)] 500 mg PO DAILY 09/01/17 [History Confirmed 09/01/17] PMH/Surg Hx/FS Hx/Imm Hx Previously Healthy: No Neurological History: Seizures Psychological History: Other Other Psychological History: Claustrophobia - Surgical History Surgical History: Yes Surgery Procedure, Year, and Place: INGUINAL HERNIA REPAIR 3 & 2003 - Family History Known Family History: Positive: Other Family History: Father and mother: colon CA. Pt is unaware of FHx of seizures. - Social History Occupation: Employed Full-time Lives: Alone Alcohol Use: Rare Substance Use Type: None Smoking Status (MU): Never Smoked Tobacco - Immunization History Most Recent Influenza Vaccination: none Most Recent Pneumonia Vaccination: none Review of Systems Constitutional: Fatigue, Other - Positive insomnia Respiratory: Other - Positive tachypnea Neurological: Weakness, Other - Positive episodes of inability to speak or move All Other Systems Reviewed And Are Negative: Yes Physical Exam - Summary Physical Exam Summary: General: well-appearing, no pain distress Skin: warm, color reflects adequate perfusion, dry Head: normal Eyes: EOMI, OSVALDO ENT: normal Neck: supple, nontender Respiratory: CTA, breath sounds present Cardiovascular: RRR Abdomen: soft, nontender Bowel: present Musculoskeletal: normal, strength/ROM intact Neurological: normal, sensory/motor intact, A&O x3 Psychological: affect/mood appropriate Triage Information Reviewed: Yes Vital Signs: Initial Vital Signs Temp 98.2 F 09/01/17 17:21 Pulse 58 09/01/17 17:21 Resp 16 09/01/17 17:21 BP 125/77 09/01/17 17:21 Pulse Ox 100 09/01/17 17:21 Vital Signs Reviewed: Yes Course/Dx - Course Course Of Treatment: BP noted advised to follow up with PCP. Medications reviewed. Allergies reviewed. LABS DRAWN. ATIVAN 1MG #3 DOSES SENT WITH PATIENT TO USE 1MG PO QHS FOR INSOMNIA PRN. F/U PMD; GET RECHECKED IF NOT IMPROVED OR WORSE. - Differential Dx - Multi-Symptom Provider Diagnoses: INSOMNIA. FATIGUE. Elevated BP without dx of HTN Discharge - Discharge Plan Condition: Stable Disposition: HOME Patient Education Materials: Insomnia (ED), Fatigue (ED) Referrals: Burak Oleary MD [Primary Care Provider] - Additional Instructions: FOLLOW UP WITH YOUR DOCTOR. RETURN TO THE EMERGENCY DEPARTMENT FOR ANY WORSENING OF YOUR CONDITION OR QUESTIONS OR CONCERNS. YOUR BLOOD PRESSURE WAS ELEVATED DURING TODAY'S VISIT; FOLLOW UP WITH YOUR PCP WITHIN ONE WEEK FOR FURTHER EVALUATION. The documentation as recorded by the Rochelle tineo Emily accurately reflects the service I personally performed and the decisions made by me, Keven Franklin MD.
[2017-09-01 18:55] VITALS: BP 0/0
[2017-09-02 14:28] LABS: ABS Basophils 0 10^3/ul (0-0.2); ABS Eosinophils 0.1 10^3/ul (0-0.6); ABS Lymphocytes 1.2 10^3/ul (1.0-4.8); ABS Monocytes 0.5 10^3/ul (0-0.8); ABS Neutrophils 4.1 10^3/ul (1.5-7.7); ABS Nucleated RBC 0.1 10^3/ul; Hematocrit 37 % (42-52); Hemoglobin 12.4 g/dl (14.0-18.0); Lymphocyte % 20.8 % (25-47); Mean Corpuscular HGB Conc 34 g/dl (31-36); Mean Corpuscular Hemoglobin 30 pg (27-31); Mean Corpuscular Volume 90 fL (80-94); Mean Platelet Volume 10 um3 (7.4-10.4); Nucleated Red Blood Cells % 2.1; Platelet Count 210 10^3/ul (150-450); Red Blood Count 4.12 10^6/ul (4.0-5.4); Red Cell Distribution Width 13 % (10.5-15)
[2017-09-02 14:37] LABS: EGFR Non-African American 66.1 (>60)
== END 2017-09-01 19:10 | disposition home or self-care (01) ==
LOC: UCEAST 17:13
DX: G47.00 Insomnia, unspecified (principal); R53.83 Other fatigue; R06.82 Tachypnea, not elsewhere classified; R53.1 Weakness; R03.0 Elevated blood-pressure reading, without diagnosis of hypertension; R56.9 Unspecified convulsions; F40.240 Claustrophobia
CPT/HCPCS: 36415; 80053; 80164; 83735; 85025; 87502; 99212; A9270-GY; G0463

== ENCOUNTER 2018-06-23 10:02 | Emergency (ER) | payer MEDICARE ==
--- OUTSIDE RECORDS SUMMARY | 2018-06-23 10:11 | XMS REPORT | Continuity of Care Document ---
:1950 External Reference #:[id number] Author Name Radha Srivastava Care Team Providers Name Role Phone Burak Oleary MD Primary Care Physician Unavailable Payers Type Date Identification Numbers Payment Provider Subscriber Policy Number: [id number] [employer] Keven Crowe PayID: [id number] [address] [place] [address] Advance Directives Description No Information Available Problems Date Description Provider Status Onset: 09/06/2017 Epilepsy Iron Cerda M.D. Active Onset: 10/29/2017 Bipolar disorder Iron Cerda M.D. 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 Active 09/06/2017 NKDA Inactive Medications Medication Date Status Form Strength Qnty SIG Indications Ordering Provider Depakote ER 09/13/ Active Tablets ER 250mg 120ta 2 by Iron 2017 24HR bs dario Cerda M.D. twice a day Multivitamin / Active Tablets 1 by Unknown Adult 0000 mouth every day Calcium / Active Tablets 300-300mg 1 tab po Unknown Magnesium 750 0000 qpm Melatonin / Active Capsules 3mg 1 Unknown 0000 capsules by mouth in the middle of the night as needed for insomnia Zoloft / Active Tablets 50mg 1 by Unknown 0000 mouth every day Clonazepam / Active Tablets 0.5mg Take 1/2 Unknown 0000 tab by mouth at bedtime.. As needed Depakote 09/12/ Hx Tablets DR 250mg 120ta 2 tablets Iron Teresa - bs by mouth Nataliia Cerda 09/13/ twice a 2018 day Depakote / Hx Tablets DR 250mg 2 tabs po Unknown 0000 - qam and 1 09/12/ tab po 2018 qpm Zolpidem / Hx Tablets 5mg 1/2 tab Unknown Tartrate 0000 - po daily 06/03/ as needed 2018 Buspirone HCL / Hx Tablets 5mg 1-2 tabs Unknown 0000 - po qhs 2017 Ativan / Hx Tablets 0.5mg 60tab take 1/2 Unknown 0000 - s pill at 01/28/ bedtime 2018 Immunizations Description No Information Available Vital Signs Date Vital Result Comment 06/04/2018 10:21am Height 68.5 inches 5'8.50" Weight 149.00 lb Heart Rate 60 /min BP Systolic 96 mmHg BP Diastolic 58 mmHg Respiratory Rate 14 /min BMI (Body Mass Index) 22.3 kg/m2 02/04/2018 8:57am Height 68.5 inches 5'8.50" Weight 136.00 lb Heart Rate 58 /min BP Systolic 98 mmHg BP Diastolic 58 mmHg Respiratory Rate 14 /min BMI (Body Mass Index) 20.4 kg/m2 10/29/2017 9:12am Height 68.5 inches 5'8.50" Weight 135.00 lb Heart Rate 56 /min BP Systolic Sitting 124 mmHg BP Diastolic Sitting 60 mmHg Respiratory Rate 16 /min BMI (Body Mass Index) 20.2 kg/m2 09/06/2017 7:53am Height 68.5 inches 5'8.50" Weight 136.00 lb Heart Rate 72 /min BP Systolic Sitting 122 mmHg BP Diastolic Sitting 62 mmHg Respiratory Rate 16 /min BMI (Body Mass Index) 20.4 kg/m2 Results Description No Information Available Procedures Date Code Description Status 09/11/2017 87189 EEG Recording Awake & Asleep Completed 08/23/2017 46608 EEG Monitoring & Video Recording Completed 08/22/2017 06802 EEG Monitoring & Video Recording Completed Encounters Type Date Location Provider Dx Diagnosis Office Visit 06/04/2018 [facility] Iron Cerda G40.909 Epilepsy, unsp, 10:15a Services Of Licensed Chemical Spray Technician M.D. not intractable, without status epilepticus Office Visit 02/04/2018 [facility] Iron Cerda G40.909 Epilepsy, unsp, 2:45p Services Of Licensed Chemical Spray Technician M.D. not intractable, without status epilepticus Office Visit 10/29/2017 [facility] Iron Cerda G40.909 Epilepsy, unsp, 9:15a Services Of Licensed Chemical Spray Technician M.D. not intractable, without status epilepticus Office Visit 09/06/2017 [facility] Iron Cerda G40.901 Epilepsy, unsp, 8:00a [facility] Of Licensed Chemical Spray Technician M.D. not intractable, with status epilepticus Office Visit 08/25/2017 [facility] Dylon Toledo MD G40.909 Epilepsy, unsp, 4:06p Clinic not intractable, without status epilepticus Office Visit 08/25/2017 [facility] Emi Escamilla, R56.9 Unspecified 10:51a Assoc, Hospitalists CAR FERRIER convulsions N40.0 Benign prostatic hyperplasia without lower urinry tract symp G47.00 Insomnia, unspecified Office 08/24/2017 [facility] Iron G40.909 Epilepsy, unsp, Visit 4:06p Clinic Nataliia Cerda not intractable, without status epilepticus Office 08/24/2017 [facility] Beena R56.9 Unspecified Visit 10:50a Assoc,carol Hong convulsions Hospitaljuan Trujillo NP N40.0 Benign prostatic hyperplasia without lower urinry tract symp G47.00 Insomnia, unspecified Office 08/23/2017 [facility] Iron G40.901 Epilepsy, unsp, Visit 4:05p Clinic Nataliia Cerda not intractable, with status epilepticus Office 08/23/2017 [facility] Beena R56.9 Unspecified Visit 10:49a Assoc,pc Hal convulsions Hospitalists LIZY Trujillo N40.0 Benign prostatic hyperplasia without lower urinry tract symp G47.00 Insomnia, unspecified Office 08/22/2017 [facility] Iron G40.901 Epilepsy, unsp, Visit 4:05p Adeel Cerda M.D. not intractable, with status epilepticus Office 08/22/2017 [facility] R56.9 Unspecified Visit 10:48a Assoc,pc Chesterelian convulsions Hospitalists ILZY Trujillo N40.0 Benign prostatic hyperplasia without lower urinry tract symp G47.00 Insomnia, unspecified Plan of Treatment Future Appointment(s):12/03/2018 10:15 am - Iron Cerda M.D. at [facility]06/04/2018 - Iron Cerda M.D.G40.909 Epilepsy, unspecified, not intractable, without status epileNew Labs:CMP Panel, Ordered: 06/04/18CBC W/Auto Diff, Ordered: 06/04/18Valproic Acid, Ordered: ollow up:Follow up in 6 monthsRecommendations:Call me in 1 week to review your labwork Have your labs checked first thing in the morning before taking your morning dose of Depakote
[2018-06-23 10:21] VITALS: BP 110/65
--- NOTE | 2018-06-23 10:38 | UC ---
Upper Extremity HPI - HPI Summary HPI Summary: was turning heavy compost barrel yesterday when "something struck my wrist" had minor pain at the time but pain progressed over day and today swollen and bruised appearing, has used ibuprofen for pain relief. - History of Current Complaint Chief Complaint: UCUpperExtremity Stated Complaint: L WRIST PAIN Time Seen by Provider: 06/23/18 10:09 Hx Obtained From: Patient Onset/Duration: Sudden Onset Severity Initially: Moderate Severity Currently: Moderate Pain Intensity: 5 Location Of Pain: Is Discrete @ - radial and dorsal L wrist area Character: Throbbing, Stiffness Aggravating Factor(s): Movement Alleviating Factor(s): Rest Associated Signs And Symptoms: Positive: Swelling, Bruising - Allergies/Home Medications Allergies/Adverse Reactions: Allergies Allergy/AdvReac Type Severity Reaction Status Date / Time quetiapine [From Seroquel] Allergy Altered Verified 06/23/18 10:11 Mental Status trazodone Allergy Altered Verified 06/23/18 10:11 Mental Status Home Medications: Home Medications Sertraline* [Zoloft*] 50 mg PO DAILY 06/23/18 [History Confirmed 06/23/18] PMH/Surg Hx/FS Hx/Imm Hx Previously Healthy: Yes Neurological History: Seizures Psychological History: Depression - Surgical History Surgical History: Yes Surgery Procedure, Year, and Place: INGUINAL HERNIA REPAIR 1952 & 2003 - Family History Known Family History: Negative: Hypertension, Diabetes Family History: Father and mother: colon CA. Pt is unaware of FHx of seizures. - Social History Occupation: Employed Full-time Alcohol Use: None Substance Use Type: None Smoking Status (MU): Never Smoked Tobacco - Immunization History Most Recent Influenza Vaccination: none Most Recent Pneumonia Vaccination: none Review of Systems All Other Systems Reviewed And Are Negative: Yes Constitutional: Positive: Negative Skin: Negative: Rash Respiratory: Positive: Negative Cardiovascular: Positive: Negative Musculoskeletal: Negative: Decreased ROM Neurological: Positive: Negative Psychological: Positive: Negative Is Patient Immunocompromised?: No Physical Exam Triage Information Reviewed: Yes Appearance: Well-Appearing, No Pain Distress, Well-Nourished Vital Signs: Initial Vital Signs Temp 97.3 F 06/23/18 10:13 Pulse 58 06/23/18 10:13 Resp 16 06/23/18 10:13 BP 110/65 06/23/18 10:13 Pulse Ox 99 06/23/18 10:13 Vital Signs Reviewed: Yes Respiratory Exam: Normal Cardiovascular Exam: Normal Musculoskeletal: Positive: Strength Intact, ROM Intact Neurological Exam: Normal Psychological Exam: Normal Diagnostics - Radiology No standard instances Radiology Interpretation Completed By: Radiologist - no fracture Upper Extremity Course/Dx - Differential Dx/Diagnosis Differential Diagnosis/HQI/PQRI: Contusion, Fracture (Closed), Strain Provider Diagnosis: Contusion Discharge - Sign-Out/Discharge Documenting (check all that apply): Patient Departure All imaging exams completed and their final reports reviewed: Yes - Discharge Plan Condition: Good Disposition: HOME Patient Education Materials: Contusion in Adults (ED) Referrals: Burak Oleary MD [Primary Care Provider] - 2 Days (if no better) Additional Instructions: elevate hand and apply cold packs. ibuprofen for pain report worsening should it occur - Billing Disposition and Condition Condition: GOOD Disposition: Home
== END 2018-06-23 11:25 | disposition home or self-care (01) ==
LOC: UCEAST 10:02
DX: S60.212A Contusion of left wrist, initial encounter (principal); F32.9 Major depressive disorder, single episode, unspecified; Z79.899 Other long term (current) drug therapy; Z88.8 Allergy status to other drugs, medicaments and biological substances; X50.9XXA Other and unspecified overexertion or strenuous movements or postures, initial encounter; Y92.9 Unspecified place or not applicable
CPT/HCPCS: 99211; G0463